=== PATIENT | female | born 1995 | race African-American/Black ===

== ENCOUNTER 2023-06-30 16:23 | Emergency (ER) | payer MEDICAID ==
[~2023-06-30] VITALS: Ht 162.6 cm; Wt 101.8 kg
[2023-06-30 18:30] VITALS: BP 126/81; PULSE 83; RESP 16; TEMP 98.4; O2SAT 99
[2023-06-30] MEDS ORDERED: BENZ100C97 PO (19:03)
== END 2023-06-30 19:08 | disposition home or self-care (01) ==
LOC: ER 16:23
DX: J01.90 Acute sinusitis, unspecified (principal)

== ENCOUNTER 2024-05-04 22:51 | Emergency (ER) | payer MEDICAID ==
[~2024-05-04] VITALS: Ht 165.1 cm; Wt 99.0 kg
[~2024-05-04 22:51] MED LIST: BENZ100C97 PO
[2024-05-04] MEDS: IBUPROFEN 600 MG TAB PO ONE (23:39)
[2024-05-05 00:21] LABS: COVID19 ANTIGEN SOFIA FIA NEGATIVE (NEGATIVE); Rapid Influenza A Negative (Negative); Rapid Influenza B Negative (Negative)
[2024-05-05] MEDS ORDERED: AMOX875T4 PO (01:06)
[2024-05-05] MEDS ORDERED: DEXT30SU PO (01:06)
[2024-05-05] MEDS ORDERED: ACET500T58 PO (01:06)
--- NOTE | 2024-05-05 01:07 | ED.PDOC ---
History of Present Illness HPI Comments 29-YEAR-OLD FEMALE PRESENTS TO ER WITH COMPLAINTS OF FLU-LIKE SYMPTOMS X1 DAY. PATIENT REPORTS THAT SHE WOKE UP WITH NAUSEA, FRONTAL HEADACHE, BODY ACHES, CHILLS, "STOMACHACHE" AND PRODUCTIVE COUGH WITH GREEN PHLEGM AT 9:00 A.M. PRIOR TO ARRIVAL TO ER. SHE REPORTS THAT SHE LAST TOOK TYLENOL AT 4 P.M. PRIOR TO ARRIVAL TO ER. SHE RATES HER CURRENT PAIN A 8/10. PATIENT PRESENTS TO ER FEBRILE ON ARRIVAL AT 101.5 F, AMBULATORY, WITH STEADY GAIT, IN NO DISTRESS AND STATES SHE HAS BEEN AROUND SICK CONTACTS AT HOME. DENIES VOMITING, SHORTNESS OF BREATH, CHEST PAIN, DIZZINESS, SORE THROAT, CHANGES IN URINATION/BM OR ANY FURTHER SYMPTOMS/COMPLAINTS Chief Complaint: Flu like Time Seen by MD: 23:28 Primary Care Provider: UNKNOWN Reviewed Notes: Nurses Notes, Medications, Allergies Information Source: Patient Mode of Arrival: Ambulatory Past Medical History PAST MEDICAL HISTORY: Denies Surgical History: FURNITURE ASSOCIATE History: No Pertinent FURNITURE ASSOCIATE History LMP 04-28-24 Family History Family History: Unknown Social History Smoker: Non-Smoker Alcohol: Denies ETOH Use Drugs: Denies Drug Use Lives In: Home Constitutional: See HPI EENTM: See HPI Respiratory: See HPI Cardiovascular: No Symptoms Reported Gastrointestinal: See HPI Genitourinary: No Symptoms Reported Neurological: No Symptoms Reported Musculoskeletal: No Symptoms Reported Integumentary: No Symptoms Reported Allergic/Immunocompromised: others (DENIES) Hematologic/Lymphatic: No Symptoms Reported Endocrine: No Symptoms Reported Psychiatric: No symptoms Reported Physical Exam General Appearance: No Apparent Distress, Obese HEENT: Normal ENT Inspection, PERRL/EOMI, Pharynx Normal, TMs Normal Neck: Full Range of Motion, Non-Tender, Normal Respiratory: Chest Non-Tender, Lungs Clear, No Accessory Muscle Use, No Respiratory Distress, Normal Breath Sounds Cardiovascular: No Murmur, No Gallop, Regular Rate/Rhythm Breast Exam: Deferred Gastrointestinal: No Organomegaly, Non Tender (NO TTP TO ABDOMEN NOTED), No Pulsatile Mass, Normal Bowel Sounds, Soft Genitalia: Deferred Pelvic: Deferred Rectal: Deferred Extremities: Normal capillary refill, Normal range of motion Neurologic: Alert, medical insurance claims processor II-XII nml as Tested, No Motor Deficits, Normal Affect, Normal Mood, No Sensory Deficits Cerebellar Function: Normal Reflexes: Normal Skin: Dry, Normal Color, Warm Peripheral Pulses: 2+ Radial (R), 2+ Radial (L), 2+ Brachial (R), 2+ Brachial (L) Lymphatic: No Adenopathy Was a procedure done? Was a procedure done?: No Sedation Sedation?: No Fever Differential Dx Differential Diagnosis: Pneumonia, Sepsis, Other (COVID-19, INFLUENZA) X-Ray, Labs, Meds, VS Vital Signs Date Time Temp Pulse Resp B/P (MAP) Pulse Ox O2 Delivery O2 Flow Rate FiO2 05/05/24 01:03 99.1 05/05/24 00:59 Room Air* 0 21 05/04/24 23:39 101.5 05/04/24 23:16 101.5 113 20 128/75 (92) 94 Lab Test 05/04/24 23:18 Range/Units Influenza Type A Antigen Negative Negative Influenza Type B Antigen Negative Negative SARS-CoV-2 Antigen (Rapid) Negative NEGATIVE Current Medications Medications (Trade) Dose Ordered Sig/Tameka Route Start Time Stop Time Status Last Admin Ibuprofen (Motrin Tablet) 600 mg ONCE ONCE PO 05/04/24 23:45 05/04/24 23:46 DC 05/04/24 23:39 ALL SWAB RESULTS REVIEWED-NEGATIVE IBUPROFEN 600 MG P.O. ORDERED PATIENT HAD IMPROVEMENT IN SYMPTOMS AND IN NO DISTRESS PRIOR TO DISCHARGE DIET EDUCATION DISCUSSED ADVISED TO FOLLOW UP WITH PCP IN 1-2 DAYS PATIENT VERBALIZED UNDERSTANDING AND AGREEABLE WITH CURRENT PLAN OF CARE ADVISED TO RETURN TO ER IMMEDIATELY IF SYMPTOMS WORSEN Time of 1ST Reevaluation: 00:48 Reevaluation 1ST: N/A Patient Education/Counseling: Diagnosis, Treatment, Prognosis, Need For Follow Up Family Education/Counseling: No Family Present Departure 1 Departure Time of Disposition: 01:02 Impression: Primary Impression: Upper respiratory infection Qualified Codes: J06.9 - Acute upper respiratory infection, unspecified Additional Impression: Viral gastroenteritis Disposition: 01 HOME / SELF CARE / HOMELESS Condition: Stable e-Prescriptions Dextromethorphan Polistirex (Delsym) 30 Mg/5 Ml Sanjuanita 10 ML PO [id number], #1 BOTTLE 0 Refills Prov: MAURICIO MUNROE 05/05/24 Amoxicillin & Pot Clavulanate (Amoxicillin/Potassium Cla) 875 Mg Tab 1 TAB PO BID for 7 Days, #14 TAB 0 Refills Prov: MAURICIO MUNROE 05/05/24 Acetaminophen (Acetaminophen) 500 Mg Tab 500 MG PO Q4HPRN, #30 TAB 0 Refills Prov: MAURICIO MUNROE 05/05/24 Discharged With: Self Critical Care Note Critical Care Time?: No Stability Stability form required: No Heart Score Heart Score: Heart Score Response (Comments) Value History N/A 0 EKG N/A 0 Age N/A 0 Risk Factors N/A 0 Troponin N/A 0 Total 0 MAURICIO MUNROE May 05, 2024 01:07
[2024-05-05 01:20] VITALS: BP 107/63; PULSE 91; RESP 16; TEMP 99.7; O2SAT 98
== END 2024-05-05 01:23 | disposition home or self-care (01) ==
LOC: ER 22:51
DX: J06.9 Acute upper respiratory infection, unspecified (principal); A08.4 Viral intestinal infection, unspecified; Z98.890 Other specified postprocedural states; Z20.822 Contact with and (suspected) exposure to COVID-19
CPT/HCPCS: 36415; 87426; 87804

== ENCOUNTER 2024-05-09 18:14 | Inpatient (IN) | payer MEDICAID ==
[~2024-05-09] VITALS: Ht 165.1 cm; Wt 98.0 kg
[~2024-05-09 18:14] MED LIST changes: +ACET500T58 PO; +AMOX875T4 PO; +DEXT30SU PO
[2024-05-09] MEDS: HYDROcodone-ACET 10/325MG TAB PO ONE (18:57)
[2024-05-09 19:20] LABS: Basophils # (auto) 0 10 ^3/uL (0-0.2); Basophils % (auto) 0.3 % (0.0-2.0); Eosinophils # (auto) 0 10 ^3/uL (0-0.8); Eosinophils % (auto) 0.4 % (0.0-7.0); Hematocrit 36.9 % (36.0-46.0); Hemoglobin 12.3 g/dL (12.2-16.2); Lymphocytes # (auto) 1.1 10 ^3/uL (0.4-5.4); Lymphocytes % (auto) 11.5 % (10.0-50.0); Mean Corpuscular Hemoglobin 26.4 pg (28.0-32.0); Mean Corpuscular Hgb Conc. 33.5 g/dL (32.0-36.0); Mean Corpuscular Volume 78.9 fL (80.0-100.0); Monocytes % (auto) 10.4 % (0.0-12.0); Neutrophils # (auto) 7.6 10 ^3/uL (1.6-8.6); Neutrophils % (auto) 77.4 % (37.0-80.0); Platelet Count (auto) 266 10^3/uL (140-450); Red Blood Cells 4.67 10^6/uL (4.0-5.20); Red Cell Distribution Width 13.8 % (11.8-14.3); White Blood Cell 9.8 10^3/uL (4.4-10.8)
[2024-05-09 19:36] LABS: Albumin 4.4 g/dL (3.2-4.8); Anion Gap 7 (5-15); BUN/Creatinine Ratio 10.5 (10.0-20.0); Calcium 9.8 mg/dL (8.7-10.4); Carbon Dioxide 28 mmol/L (20-31); Chloride 100 mmol/L (98-107)
[2024-05-09 19:37] LABS: Bilirubin, Total 0.4 mg/dL (0.2-1.0)
[2024-05-09 19:39] LABS: Alanine Aminotransferase 65 U/L (7-40); Alkaline Phosphatase 119 U/L (46-116); Aspartate Aminotransferase 49 U/L (13-40); Blood Urea Nitrogen 9 mg/dL (9-23); Glucose 108 mg/dL (74-106); Potassium 3.4 mmol/L (3.5-5.1); Sodium 135 mmol/L (136-145); Total Protein 8.2 g/dL (5.7-8.2)
[2024-05-09] MEDS: HYDROmorphone HCL 2 MG/ML VL/or syr IM ONE (19:59)
[2024-05-09] MEDS: IOHEXOL 300 MG/ML 100ML BOTTLE IJ ONE (21:13)
--- NOTE | 2024-05-09 21:31 | DVH ---
Exam: CT PELVIS WITH CONTRAST ONLY History: Large abscess to left gluteus near the rectum Comparison Study: None available at time of dictation. Technique: Multidetector CT of the pelvis was performed from iliac crests to pubic symphysis after th e administration of intravenous contrast was administered during this examination. Portal venous imag ing was obtained. Axial, coronal and sagittal multiplanar reformats were performed by the [employer] t on a separate workstation. Radiation Dose : CT Dose: CTDI volume is 33.04 mGy. Dose-length product is 1462.07 mGy*cm Findings: Visualized bowel: No bowel wall thickening or dilatation. Ascites: Absent Lymphadenopathy: No pelvic or mesenteric lymphadenopathy. Vasculature: The visualized abdominal aorta is normal in size and caliber. Abdominal and pelvic vesse ls demonstrate normal enhancement. Pelvic Organs: Unremarkable Musculoskeletal: No acute osseous abnormality. Bladder: Unremarkable Soft tissues: Stranding in the soft tissues of the left gluteal area without findings to suggest drai nable fluid collection or central abscess. The stranding consistent with a phlegmon measures 9.3 x 4. 9 cm IMPRESSION: 1. 9.3 x 4.9 cm phlegmon left gluteal soft tissues. 2. No drainable abscess visualized. All CT scans at this medical facility are performed using dose modulation techniques as appropriate t o a performed exam including the following: Automated exposure control was utilized; adjustment of th e MA and/or KV according to patient size; and use of iterative reconstruction technique.
--- NOTE | 2024-05-09 21:57 | ED.PDOC ---
History of Present Illness HPI Comments Patient is a pleasant but morbidly obese 29-year-old female who arrives the ED today via EMS for evaluation of a left gluteal abscess that began approximately two days ago and has worsened tremendously to since initial presentation. Patient states she can barely sit down without severe pain. Patient denies any fever nausea or vomiting. Patient states that she did attempt to pop it but only was able to express blood. Patient arrives with a large bandage that is bloodied on her left gluteal region. Vital signs were stable on arrival. Chief Complaint: Wound Check Time Seen by MD: 18:24 Primary Care Provider: UNKNOWN Reviewed Notes: Nurses Notes Allergies: Coded Allergies: NO KNOWN ALLERGIES (Unverified , 06/30/23) Home Meds Active Scripts Dextromethorphan Polistirex (Delsym) 30 Mg/5 Ml Sanjuanita, 10 ML PO [id number], #1 BOTTLE 0 Refills Prov:MAURICIO MUNROE 05/05/24 Amoxicillin & Pot Clavulanate (Amoxicillin/Potassium Cla) 875 Mg Tab, 1 TAB PO BID for 7 Days, #14 TAB 0 Refills Prov:MAURICIO MUNROE 05/05/24 Acetaminophen (Acetaminophen) 500 Mg Tab, 500 MG PO Q4HPRN, #30 TAB 0 Refills Prov:MAURICIO MUNROE 05/05/24 Benzonatate (Benzonatate) 100 Mg Cap, 1 CAP PO TID, #30 CAP Prov:ASHLIE CHESTER PAC 06/30/23 Information Source: Patient Mode of Arrival: EMS Severity: Moderate Timing: Days Duration: Since onset Prehospital treatment: None Past Medical History PAST MEDICAL HISTORY: Denies Surgical History: DIRECTOR OF QUALITY CONTROL History: No Pertinent DIRECTOR OF QUALITY CONTROL History Family History Family History: Unknown Social History Smoker: Non-Smoker Alcohol: Denies ETOH Use Drugs: Denies Drug Use Lives In: Home Constitutional: denies: chills, diaphoresis, fatigue, fever, malaise, sweats, weakness, others EENTM: denies: blurred vision, double vision, ear bleeding, ear discharge, ear drainage, ear pain, ear ringing, eye pain, eye redness, hearing loss, mouth pain, mouth swelling, nasal discharge, nose bleeding, nose congestion, nose pain, photophobia, tearing, throat pain, throat swelling, voice changes, others Respiratory: denies: cough, hemoptysis, orthopnea, SOB at rest, shortness of breath, SOB with excertion, stridor, wheezing, others Cardiovascular: denies: chest pain, dizzy spells, diaphoresis, Dyspnea on exertion, edema, irregular heart beat, left arm pain, lightheadedness, palpitations, PND, syncope, others Gastrointestinal: denies: abdomen distended, abdominal pain, blood streaked bowels, constipated, diarrhea, dysphagia, difficulty swallowing, hematemesis, melena, nausea, poor appetite, poor fluid intake, rectal bleeding, rectal pain, vomiting, others Genitourinary: denies: abnormal vagina bleeding, burning, dyspareunia, dysuria, flank pain, frequency, hematuria, incontinence, pain, , vagina discharge, urgency, others Neurological: denies: dizziness, fainting, headache, left sided numbness, left sided weakness, numbness, paresthesia, pre-existing deficit, right sided numbness, right sided weakness, seizure, speech problems, tingling, tremors, weakness, others Musculoskeletal: denies: back pain, gout, joint pain, joint swelling, muscle pain, muscle stiffness, neck pain, others Integumetry: reports: others (Abscess to the left gluteal region); denies: bruises, change in color, change in hair/nails, dryness, laceration, lesions, lumps, rash, wounds Allergic/Immunocompromised: denies: Difficulty Healing, Frequent Infections, Hives, Itching, others Hematologic/Lymphatic: denies: anemia, blood clots, easy bleeding, easy bruisi ng, swollen glands, others Endocrine: denies: excessive hunger, excessive sweating, excessive thirst, exce ssive urination, flushing, intolerance to cold, intolerance to heat, unexplained weight gain, unexplained weight loss, others Psychiatric: denies: anxiety, bipolar disorder, depression, hopeless, panic disorder, schizophrenia, sleepless, suicidal, others Physical Exam General Appearance: Moderate Distress (Patient was in moderate distress and tearful at time of evaluation due to pain related to her wound.), Obese HEENT: Normal ENT Inspection, Pharynx Normal, TMs Normal Neck: Full Range of Motion, Non-Tender, Normal, Normal Inspection Respiratory: Chest Non-Tender, Lungs Clear, No Accessory Muscle Use, No Respiratory Distress, Normal Breath Sounds Cardiovascular: No Edema, No JVD, No Murmur, No Gallop, Normal Peripheral Pulses, Regular Rate/Rhythm Breast Exam: Deferred Gastrointestinal: No Organomegaly, Non Tender, No Pulsatile Mass, Normal Bowel Sounds, Soft Genitalia: Deferred Pelvic: Deferred Rectal: Deferred Extremities: No calf tenderness, Normal capillary refill, Normal inspection, No rmal range of motion, Non-tender, No pedal edema Neurologic: Alert, No Motor Deficits, Normal Affect, Normal Mood, No Sensory Deficits Cerebellar Function: Normal Reflexes: Normal Skin: Dry, Normal Color, Warm, Wounds (Patient was strains a home sized area of induration on the left gluteal region that extends into the gluteal fold and towards the rectum. A bloodied bandage was removed and reveals some bleeding from a pseudo centralized location. Exquisite tenderness to palpation throughout.) Lymphatic: No Adenopathy Was a procedure done? Was a procedure done?: No Differential Dx Considerations may include: Abscess, phlegmon, cellulitis X-Ray, Labs, Meds, VS Vital Signs Date Time Temp Pulse Resp B/P (MAP) Pulse Ox O2 Delivery O2 Flow Rate FiO2 05/09/24 19:59 104 20 133/74 05/09/24 18:31 98.1 94 14 106/57 (73) 99 Lab Test 05/09/24 19:05 Range/Units White Blood Count 9.8 4.4-10.8 10^3/uL Red Blood Count 4.67 4.0-5.20 10^6/uL Hemoglobin 12.3 12.2-16.2 g/dL Hematocrit 36.9 36.0-46.0 % Mean Corpuscular Volume 78.9 L 80.0-100.0 fL Mean Corpuscular Hemoglobin 26.4 L 28.0-32.0 pg Mean Corpuscular Hemoglobin Concent 33.5 32.0-36.0 g/dL Red Cell Distribution Width 13.8 11.8-14.3 % Platelet Count 266 140-450 10^3/uL Mean Platelet Volume 8.9 6.9-10.8 fL Neutrophils (%) (Auto) 77.4 37.0-80.0 % Lymphocytes (%) (Auto) 11.5 10.0-50.0 % Monocytes (%) (Auto) 10.4 0.0-12.0 % Eosinophils (%) (Auto) 0.4 0.0-7.0 % Basophils (%) (Auto) 0.3 0.0-2.0 % Neutrophils # (Auto) 7.6 1.6-8.6 10 ^3/uL Lymphocytes # (Auto) 1.1 0.4-5.4 10 ^3/uL Monocytes # (Auto) 1.0 0-1.3 10 ^3/uL Eosinophils # (Auto) 0 0-0.8 10 ^3/uL Basophils # (Auto) 0 0-0.2 10 ^3/uL Nucleated Red Blood Cells 0.0 % Sodium Level 135 L 136-145 mmol/L Potassium Level 3.4 L 3.5-5.1 mmol/L Chloride Level 100 98-107 mmol/L Carbon Dioxide Level 28 20-31 mmol/L Anion Gap 7 5-15 Blood Urea Nitrogen 9 9-23 mg/dL Creatinine 0.86 0.550-1.02 mg/dL Glomerular Filtration Rate Calc 94 >90 mL/min BUN/Creatinine Ratio 10.5 10.0-20.0 Serum Glucose 108 H 74-106 mg/dL Lactic Acid Level 1.3 0.4-2.0 mmol/L Calcium Level 9.8 8.7-10.4 mg/dL Total Bilirubin 0.4 0.2-1.0 mg/dL Aspartate Amino Transferase (AST) 49 H 13-40 U/L Alanine Aminotransferase (ALT) 65 H 7-40 U/L Alkaline Phosphatase 119 H 46-116 U/L Total Protein 8.2 5.7-8.2 g/dL Albumin 4.4 3.2-4.8 g/dL Current Medications Medications (Trade) Dose Ordered Sig/Tameka Route Start Time Stop Time Status Last Admin Acetaminophen/ Hydrocodone Bitart ([place] 10/325MG Tab) 1 tab ONCE ONCE PO 05/09/24 18:45 05/09/24 19:41 DC 05/09/24 18:57 Hydromorphone HCl (Dilaudid Injection) 1 mg ONCE ONCE IM 05/09/24 19:45 05/09/24 19:46 DC 05/09/24 19:59 X-Ray, Labs, Meds, VS Comment All studies performed the ED were evaluated by me personally. Serum laboratories were unremarkable for any systemic concerns, but CT with contrast on the gluteal region reveals a large phlegmon noted to the left gluteal soft tissue. Due to the patient's difficult pain management as well as the possible development of a fistula due to the size of this wound, patient will be admitted for IV antibiotics and daily wound assessments. Patient may require surgical intervention. Time of 1ST Reevaluation: 21:59 Reevaluation 1ST: Improved Consultation: PCP Patient Education/Counseling: Diagnosis, Treatment Family Education/Counseling: Diagnosis, Treatment Departure 1 Departure Time of Disposition: 21:56 Impression: Primary Impression: Phlegmon Additional Impression: Intractable pain Disposition: 09 ADMITTED INPATIENT Condition: Fair Discharged With: Self Critical Care Note Critical Care Time?: No Stability Stability form required: No Heart Score Heart Score: Heart Score Response (Comments) Value History N/A 0 EKG N/A 0 Age N/A 0 Risk Factors N/A 0 Troponin N/A 0 Total 0 GREGORY COMER PAC May 09, 2024 21:57
[2024-05-09] MEDS ORDERED: PENICILLIN G POTASSIUM 3,000,000 UNITS in D5W 5% 50 ML IV SCH (22:00)
[2024-05-09] MEDS ORDERED: HYDROcodone-ACET 5/325MG TAB PO PRN (23:45)
[2024-05-09] MEDS: POTASSIUM CHL 20 Meq TABLET PO ONE (23:45)
[2024-05-09] MEDS ORDERED: NITROGLYCERIN 0.4 MG SL TAB SL PRN (23:45)
[2024-05-09] MEDS ORDERED: DOCUSATE SOD 100 MG CAP PO PRN (23:45)
[2024-05-09] MEDS ORDERED: MORPHINE SULFATE INJ 2 MG/ml SYRG IV PRN (23:45)
--- NOTE | 2024-05-09 23:48 | DVHHP2 ---
History of Present Illness Reason for Visit: Left gluteal abscess History of Present Illness The patient is a 29-year-old female who denies past medical history presented to [facility] ED for evaluation of left gluteal abscess. Patient reports abscess has worsened from initial presentation that prompted this visit. Patient was seen and evaluated in the ED, laboratory data shows WBC 9.8, platelets 266, sodium 135, potassium 3.4, BUN nine, creatinine 0.85, GFR 94, glucose 108, AST 49, ALT 65. Pelvis CT revealing 9.3 x 4.9 cm phlegmon left gluteal soft tissues, no drainable abscess visualized. Patient was started on IV antibiotic regimen Zosyn, please see medication orders section in the computer. On my assessment, patient denied chest pain, no headache, no dizziness, no abdominal pain, no nausea, no vomiting, no fever, no chills. Patient was admitted for further evaluation and medical management. Past Medical History Denies past medical history Past Surgical History Family History Reviewed, noncontributory to the management of this case. Past Social History The patient lives at home, denies smoking, alcohol or illicit drugs abuse. Review of Systems Constitutional: No: Fever, Chills, Sweats, Weakness, Malaise, Other Eyes: No: Pain, Vision change, Conjunctivae inflammation, Eyelid inflammation, Other, Redness ENT: No: Ear pain, Ear discharge, Nose pain, Nose discharge, Nose congestion, Mouth pain, Mouth swelling, Throat pain, Throat swelling, Other Respiratory: No: Cough, Dry, Shortness of breath, SOB with excertion, Wheezing, Hemoptysis, Pleuritic Pain, Sputum, Wheezing, Other Cardiovascular: No: Chest Pain, Palpitations, Orthopnea, Paroxysmal Noc. Dyspnea, Edema, Lt Headedness, Other Gastrointestinal: No: Nausea, Vomiting, Abdominal Pain, Diarrhea, Constipation, Melena, Hematochezia, Other Genitourinary: No Dysuria, No Frequency, No Incontinence, No Hematuria, No Retention, No Other Musculoskeletal: No: other, neck pain, shoulder pain, arm pain, back pain, hand pain, leg pain, foot pain Skin: Other (Abscess to the left gluteal region); No: Rash, Lesions, Jaundice, Bruising Neurological: No: Weakness, Numbness, Incoordination, Change in speech, Confusion, Seizures, Other Allergies: Coded Allergies: NO KNOWN ALLERGIES (Unverified , 06/30/23) Medications Current Medications Medications Dose Ordered Sig/Tameka Route Start Time Stop Time Status Last Admin Dose Admin Penicillin G Potassium [id number] units/Dextrose 50 ml @ 100 mls/hr Q4HR IV 05/09/24 22:00 Exam Vital Signs Vital Signs Date Time Temp Pulse Resp B/P (MAP) Pulse Ox O2 Delivery O2 Flow Rate FiO2 05/09/24 19:59 104 20 133/74 05/09/24 18:31 98.1 99 General Appearance: Alert, Oriented X3, Cooperative, No acute distress HEENT: Atraumatic, PERRLA, EOMI, Mucous membr. moist/pink Respiratory: Clear to auscultation, Normal air movement Cardiovascular: Regular rate, Normal S1, Normal S2, No murmurs Abdominal: Normal bowel sounds, Soft, No tenderness, No hepatospenomegaly, No masses Extremities: No clubbing, No cyanosis, No edema, Normal pulses, No tenderness/swelling Skin: No rashes, No significant lesion Neuro: Normal gait, Normal speech, Strength at 5/5 X4 ext, Normal tone, Sensation intact, Cranial nerves 3-12 NL, Reflexes 2+ Psych/Mental Status: Mental status NL, Mood NL Labs/Xrays Labs Test 05/09/24 19:05 Range/Units White Blood Count 9.8 4.4-10.8 10^3/uL Red Blood Count 4.67 4.0-5.20 10^6/uL Hemoglobin 12.3 12.2-16.2 g/dL Hematocrit 36.9 36.0-46.0 % Mean Corpuscular Volume 78.9 L 80.0-100.0 fL Mean Corpuscular Hemoglobin 26.4 L 28.0-32.0 pg Mean Corpuscular Hemoglobin Concent 33.5 32.0-36.0 g/dL Red Cell Distribution Width 13.8 11.8-14.3 % Platelet Count 266 140-450 10^3/uL Mean Platelet Volume 8.9 6.9-10.8 fL Neutrophils (%) (Auto) 77.4 37.0-80.0 % Lymphocytes (%) (Auto) 11.5 10.0-50.0 % Monocytes (%) (Auto) 10.4 0.0-12.0 % Eosinophils (%) (Auto) 0.4 0.0-7.0 % Basophils (%) (Auto) 0.3 0.0-2.0 % Neutrophils # (Auto) 7.6 1.6-8.6 10 ^3/uL Lymphocytes # (Auto) 1.1 0.4-5.4 10 ^3/uL Monocytes # (Auto) 1.0 0-1.3 10 ^3/uL Eosinophils # (Auto) 0 0-0.8 10 ^3/uL Basophils # (Auto) 0 0-0.2 10 ^3/uL Nucleated Red Blood Cells 0.0 % Sodium Level 135 L 136-145 mmol/L Potassium Level 3.4 L 3.5-5.1 mmol/L Chloride Level 100 98-107 mmol/L Carbon Dioxide Level 28 20-31 mmol/L Anion Gap 7 5-15 Blood Urea Nitrogen 9 9-23 mg/dL Creatinine 0.86 0.550-1.02 mg/dL Glomerular Filtration Rate Calc 94 >90 mL/min BUN/Creatinine Ratio 10.5 10.0-20.0 Serum Glucose 108 H 74-106 mg/dL Lactic Acid Level 1.3 0.4-2.0 mmol/L Calcium Level 9.8 8.7-10.4 mg/dL Total Bilirubin 0.4 0.2-1.0 mg/dL Aspartate Amino Transferase (AST) 49 H 13-40 U/L Alanine Aminotransferase (ALT) 65 H 7-40 U/L Alkaline Phosphatase 119 H 46-116 U/L Total Protein 8.2 5.7-8.2 g/dL Albumin 4.4 3.2-4.8 g/dL [id number]: [id number] : 1995 LOC: ER ROOM / BED: / AGE / SEX: 29 / F ADM STATUS: REG ER SERVICE 2253 ORDERING PHYSICIAN: GREGORY COMER PAC PROCEDURE(s): PELCT - PELVIS WITH CONTRAST ONLY REASON: Large abscess to left gluteus near the rectum ORDER NUMBER(s): [id number], ACCESSION NUMBER(s): [id number] Exam: CT PELVIS WITH CONTRAST ONLY History: Large abscess to left gluteus near the rectum Comparison Study: None available at time of dictation. Technique: Multidetector CT of the pelvis was performed from iliac crests to pubic symphysis after the administration of intravenous contrast was administered during this examination. Portal venous imaging was obtained. Axial, coronal and sagittal multiplanar reformats were performed by the technologist on a separate workstation. Radiation Dose : CT Dose: CTDI volume is 33.04 mGy. Dose-length product is 1462.07 mGy*cm Findings: Visualized bowel: No bowel wall thickening or dilatation. Ascites: Absent Lymphadenopathy: No pelvic or mesenteric lymphadenopathy. Vasculature: The visualized abdominal aorta is normal in size and caliber. Abdominal and pelvic vessels demonstrate normal enhancement. Pelvic Organs: Unremarkable Musculoskeletal: No acute osseous abnormality. Bladder: Unremarkable Soft tissues: Stranding in the soft tissues of the left gluteal area without findings to suggest drainable fluid collection or central abscess. The stranding consistent with a phlegmon measures 9.3 x 4.9 cm IMPRESSION: 1. 9.3 x 4.9 cm phlegmon left gluteal soft tissues. 2. No drainable abscess visualized. Assessment/Plan Assessment/Plan Phlegmon Intractable pain Left gluteal abscess Plan 1. Admit to med surge unit 2. Breathing treatment 3. Pain control management 4. IV antibiotic management 5. Management of fluids and electrolytes 6. Consultation for hospitalist/wound care 7. Diagnostic test pelvic CT 8. DVT prophylaxis-on SCDs 9. Repeat labs CBC, CMP in a.m. 10. Home medication reviewed and reconciled 11. Continue with current medical management 12. Treatment plan discussed with patient and RN. Patient verbalized understanding. Plan discussed with: Patient, Other (RN) My Orders Orders - KALIN SANCHES DNP Procedure Category Date Status Time Potassium Er Tablet PHA 05/09/24 Transmitted (Klor-Con Tablet) 23:45 Admit ADMIT 05/09/24 Transmitted 23:35 Allergies OSBALDO 05/09/24 Transmitted 23:35 Code Status CODE 05/09/24 Transmitted 23:35 2 Gm Sodium Diet DIET 05/10/24 Transmitted Breakfast 0.9% Ns 1000 Ml PHA 05/09/24 Transmitted 23:45 Oxygen Per Hour RT 05/09/24 Transmitted 23:35 Hydrocodone-Acet PHA 05/09/24 Transmitted 5/325mg Tab ([place] 23:45 Ondansetron Hcl PHA 05/09/24 Transmitted (Zofran) 23:45 Docusate Sodium PHA 05/09/24 Transmitted Capsule (Colace 23:45 Zinc Sulfate PHA 05/10/24 Transmitted 10:00 Ascorbic Acid Tablet PHA 05/10/24 Transmitted (Vitamin C Tablet) 10:00 Complete Blood Count LAB 05/10/24 Verified 04:00 Comprehensive LAB 05/10/24 Verified Metabolic Panel 04:00 Condition: Serious OSBALDO 05/09/24 Transmitted 23:35 Acetaminophen Tablet PHA 05/09/24 Transmitted (Tylenol Tablet) 23:45 Bedrest With Bathroom OSBALDO 05/09/24 Transmitted Privileg 23:35 Morphine Sulfate PHA 05/09/24 Transmitted Injection 23:45 Sequential OSBALDO 05/09/24 Transmitted Compression Device Nitroglycerin PHA 05/09/24 Transmitted Sublingual (Ntrostat 23:45 Morphine Sulfate PHA 05/09/24 Transmitted Injection 23:45 Notify Md Of Changes [facility] 05/09/24 Transmitted From Base 23:35 Emergency Dysrhythmia [facility] 05/09/24 Transmitted Protocol 23:35 Oxygen By Nasal RT 05/09/24 Transmitted Cannula 23:35 Problem List: (1) Phlegmon (2) Abscess, gluteal, left (3) Intractable pain Date of Service: May 09, 2024 Billing Provider: KALIN SANCHES DNP Common Visit Codes: [id number] INP/OBS CARE (HIGH) KALIN SANCHES DNP May 09, 2024 23:48
[2024-05-10] MEDS: SODIUM CHLORIDE 0.9% 1,000 ML IV ONE (01:43)
[2024-05-10] MEDS: PIPERACILLIN-TAZOB 3.375GM 100 ML IV SCH (02:30)
[2024-05-10] MEDS: ACETAMINOPHEN 325 MG TAB PO PRN (02:32)
[2024-05-10] MEDS: SODIUM CHLORIDE 0.9% 1,000 ML IV SCH (03:02)
[2024-05-10] MEDS: IBUPROFEN 600 MG TAB PO PRN (06:09)
[2024-05-10 07:16] LABS: Basophils # (auto) 0 10 ^3/uL (0-0.2); Basophils % (auto) 0.2 % (0.0-2.0); Eosinophils # (auto) 0 10 ^3/uL (0-0.8); Eosinophils % (auto) 0.2 % (0.0-7.0); Platelet Count (auto) 222 10^3/uL (140-450)
[2024-05-10 07:20] LABS: Hematocrit 33.5 % (36.0-46.0); Lymphocytes % (auto) 9.5 % (10.0-50.0); Mean Corpuscular Hemoglobin 25.8 pg (28.0-32.0); Mean Corpuscular Hgb Conc. 32.8 g/dL (32.0-36.0); Mean Corpuscular Volume 78.6 fL (80.0-100.0); Monocytes # (auto) 1.4 10 ^3/uL (0-1.3); Monocytes % (auto) 14.1 % (0.0-12.0); Neutrophils # (auto) 7.7 10 ^3/uL (1.6-8.6); Red Blood Cells 4.26 10^6/uL (4.0-5.20); Red Cell Distribution Width 13.7 % (11.8-14.3); White Blood Cell 10.1 10^3/uL (4.4-10.8)
[2024-05-10 07:34] LABS: Alkaline Phosphatase 100 U/L (46-116); Anion Gap 8 (5-15); Aspartate Aminotransferase 36 U/L (13-40); BUN/Creatinine Ratio 9.5 (10.0-20.0); Carbon Dioxide 25 mmol/L (20-31); Chloride 101 mmol/L (98-107)
[2024-05-10 07:35] LABS: Bilirubin, Total 0.6 mg/dL (0.2-1.0)
[2024-05-10 07:36] LABS: Alanine Aminotransferase 55 U/L (7-40); Blood Urea Nitrogen 8 mg/dL (9-23); Calcium 8.3 mg/dL (8.7-10.4); Glucose 116 mg/dL (74-106); Potassium 3.5 mmol/L (3.5-5.1); Sodium 134 mmol/L (136-145)
[2024-05-10 07:39] VITALS: PULSE 87; RESP 14; O2SAT 96
[2024-05-10] MEDS: ASCORBIC ACID 500 MG TAB PO SCH (11:33)
[2024-05-10] MEDS: ZINC SULFATE 220mg CAP or TAB PO SCH (11:33)
[2024-05-10] MEDS: MORPHINE SULFATE INJ 2 MG/ml SYRG IV PRN (13:20)
[2024-05-10 17:33] VITALS: BP 121/71; PULSE 99; RESP 16; TEMP 98.7; O2SAT 98
[2024-05-10 18:26] VITALS: BP 103/53; PULSE 90; RESP 19; TEMP 99.7; O2SAT 95
[2024-05-10 19:00] VITALS: PULSE 88; RESP 17; O2SAT 99
[2024-05-10 20:00] VITALS: PULSE 88; RESP 17; O2SAT 99
--- NOTE | 2024-05-10 20:18 | DVHPN2 ---
Subjective The patient seen and examined at bedside. The patient still have lots of pain in buttock area. Reviewed: Care Plan, H&P, Labs, Medications, Previous Orders, Radiology Changes from previous H/P or p: No Changes Eyes: No Pain, No Vision change, No Conjunctivae inflammation, No Eyelid inflammation, No Other, No Redness ENT: No Ear pain, No Ear discharge, No Nose pain, No Nose discharge, No Nose congestion, No Mouth pain, No Mouth swelling, No Throat pain, No Throat swelling, No Other Cardiovascular: No Chest Pain, No Palpitations, No Orthopnea, No Paroxysmal Noc. Dyspnea, No Edema, No Lt Headedness, No Other Respiratory: No Cough, No Dry, No Shortness of breath, No SOB with excertion, No Wheezing, No Hemoptysis, No Pleuritic Pain, No Sputum, No Other Gastrointestinal: No Nausea, No Vomiting, No Abdominal Pain, No Diarrhea, No Constipation, No Melena, No Hematochezia, No Other Genitourinary: No Dysuria, No Frequency, No Incontinence, No Hematuria, No Retention, No Other Musculoskeletal: No other, No neck pain, No shoulder pain, No arm pain, No back pain, No hand pain, No leg pain, No foot pain Skin: No Rash, No Lesions, No Jaundice, No Bruising; Other (Abscess to the left gluteal region) Objective Vitals Vital Signs Date Time Temp Pulse Resp B/P (MAP) Pulse Ox O2 Delivery O2 Flow Rate FiO2 05/10/24 18:55 Room Air* 0 21 05/10/24 18:26 99.7 90 19 103/53 (70) 95 99.7 Intake/Output Intake and Output 05/10/24 07:00 Intake Total 1000 ml Balance 1000 ml Intake IV Total 1000 ml General Appearance: Alert, Oriented X3, Cooperative, No acute distress HEENT: Atraumatic, PERRLA, EOMI, Mucous membr. moist/pink Neck: Supple Cardiovascular: Regular rate, Normal S1, Normal S2, No murmurs, Gallops, Rubs Abdomen: Normal bowel sounds, Soft, No tenderness Neuro: Cranial nerves 3-12 NL Psych/Mental Status: Mental status NL Medications Current Medications Medications Dose Ordered Sig/Tameka Route Start Time Stop Time Status Last Admin Dose Admin Sodium Chloride 1,000 ml @ 60 mls/hr [id number] IV 05/09/24 23:45 05/10/24 16:55 60 MLS/HR Ondansetron HCl 4 mg Q4HP PRN IV 05/09/24 23:45 Docusate Sodium 100 mg BIDPRN PRN PO 05/09/24 23:45 Zinc Sulfate 220 mg DAILY PO 05/10/24 10:00 05/10/24 11:33 220 MG Ascorbic Acid 500 mg BID PO 05/10/24 10:00 05/10/24 11:33 500 MG Acetaminophen 650 mg Q6HP PRN PO 05/09/24 23:45 05/10/24 10:36 650 MG Morphine Sulfate 2 mg Q4HPRN PRN IV 05/09/24 23:45 05/10/24 13:20 2 MG Nitroglycerin 0.4 mg Q5MINP PRN SL 05/09/24 23:45 Morphine Sulfate 2 mg Q30M PRN IV 05/09/24 23:45 Piperacillin Sod/ Tazobactam Sod 100 ml @ 25 mls/hr Q8H IV 05/10/24 02:30 05/10/24 11:33 25 MLS/HR Ibuprofen 600 mg Q6HP PRN PO 05/10/24 06:00 05/10/24 16:40 600 MG Laboratory Results Laboratory Tests 05/10/24 06:35 Chemistry Test 05/10/24 06:35 Albumin 4.0 g/dL (3.2-4.8) Calcium Level 8.3 mg/dL (8.7-10.4) L Total Protein 7.0 g/dL (5.7-8.2) LFT Test 05/10/24 06:35 Alanine Aminotransferase (ALT) 55 U/L (7-40) H Alkaline Phosphatase 100 U/L (46-116) Aspartate Amino Transferase (AST) 36 U/L (13-40) Total Bilirubin 0.6 mg/dL (0.2-1.0) Labs and/or images reviewed: Labs reviewed by me Assessment/Plan Assessment/Plan Phlegmon Intractable pain Left gluteal abscess Plan Continue current management with IV antibiotic Zosyn Continue pain medications. Will follow up with the phlegmon. Anticipate IR consult if possible abscess that we can drain. Plan discussed with: Patient My Orders Orders - JOANNE SUNG MD Procedure Category Date Status Time Electrocardigram EKG 05/10/24 Logged 15:21 Date of Service: May 10, 2024 Billing Provider: JOANNE SUNG MD Common Visit Codes: [id number] INP/OBS CARE(HIGH) JOANNE SUNG MD May 10, 2024 20:18
[2024-05-10 21:00] VITALS: BP 102/60; PULSE 86; RESP 18; TEMP 99.7; O2SAT 97
[2024-05-11] VITALS (7 sets, daily range): BP systolic 104–135; BP diastolic 53–79; PULSE 63–87; RESP 18–20; TEMP 97.5–98.4; O2SAT 93–100
[2024-05-11 07:07] LABS: White Blood Cell 8.3 10^3/uL (4.4-10.8)
[2024-05-11 07:12] LABS: Hematocrit 32.6 % (36.0-46.0); Hemoglobin 10.9 g/dL (12.2-16.2); Mean Corpuscular Hemoglobin 26.4 pg (28.0-32.0); Mean Corpuscular Hgb Conc. 33.5 g/dL (32.0-36.0); Mean Corpuscular Volume 78.8 fL (80.0-100.0); Platelet Count (auto) 243 10^3/uL (140-450); Red Blood Cells 4.14 10^6/uL (4.0-5.20); Red Cell Distribution Width 14.1 % (11.8-14.3)
[2024-05-11 07:22] LABS: Basophils % (manual) 0 (0.0-2.0); Blast Cells 0; Eosinophils % (manual) 0 (0-7); Metamyelocytes % 0; Myelocytes % 0; Promyelocytes % 0; Reactive Lymphocytes 0
[2024-05-11 07:28] LABS: Anion Gap 7 (5-15); Carbon Dioxide 28 mmol/L (20-31); Chloride 102 mmol/L (98-107); Potassium 3.5 mmol/L (3.5-5.1); Sodium 137 mmol/L (136-145)
[2024-05-11 07:30] LABS: Calcium 8.7 mg/dL (8.7-10.4)
[2024-05-11 07:34] LABS: BUN/Creatinine Ratio 8.9 (10.0-20.0); Glucose 103 mg/dL (74-106)
[2024-05-11 07:42] LABS: Blood Urea Nitrogen 7 mg/dL (9-23)
[2024-05-11 08:14] LABS: Anisocytosis Slight; Band Neutrophils % (manual) 4; Lymphocytes % (manual) 13 (10.0-50.0); Monocytes % (manual) 15 (0-12)
[2024-05-11 08:15] LABS: Platelet Estimate Adequate
--- NOTE | 2024-05-11 09:43 | ECG ---
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
--- NOTE | 2024-05-11 11:40 | DVHPN2 ---
Subjective The patient seen and examined at bedside. The patient still have lots of pain in buttock area. Reviewed: Care Plan, H&P, Labs, Medications, Previous Orders, Radiology Changes from previous H/P or p: No Changes Eyes: No Pain, No Vision change, No Conjunctivae inflammation, No Eyelid inflammation, No Other, No Redness ENT: No Ear pain, No Ear discharge, No Nose pain, No Nose discharge, No Nose congestion, No Mouth pain, No Mouth swelling, No Throat pain, No Throat swelling, No Other Cardiovascular: No Chest Pain, No Palpitations, No Orthopnea, No Paroxysmal Noc. Dyspnea, No Edema, No Lt Headedness, No Other Respiratory: No Cough, No Dry, No Shortness of breath, No SOB with excertion, No Wheezing, No Hemoptysis, No Pleuritic Pain, No Sputum, No Other Gastrointestinal: No Nausea, No Vomiting, No Abdominal Pain, No Diarrhea, No Constipation, No Melena, No Hematochezia, No Other Genitourinary: No Dysuria, No Frequency, No Incontinence, No Hematuria, No Retention, No Other Musculoskeletal: No other, No neck pain, No shoulder pain, No arm pain, No back pain, No hand pain, No leg pain, No foot pain Skin: No Rash, No Lesions, No Jaundice, No Bruising; Other (Abscess to the left gluteal region) Objective Vitals Vital Signs Date Time Temp Pulse Resp B/P (MAP) Pulse Ox O2 Delivery O2 Flow Rate FiO2 05/11/24 08:58 98.0 63 19 109/68 (82) 100 98.0 05/10/24 20:00 Room Air* 0 21 General Appearance: Alert, Oriented X3, Cooperative, No acute distress HEENT: Atraumatic, PERRLA, EOMI, Mucous membr. moist/pink Neck: Supple Cardiovascular: Regular rate, Normal S1, Normal S2, No murmurs, Gallops, Rubs Abdomen: Normal bowel sounds, Soft, No tenderness Neuro: Cranial nerves 3-12 NL Psych/Mental Status: Mental status NL Medications Current Medications Medications Dose Ordered Sig/Tameka Route Start Time Stop Time Status Last Admin Dose Admin Sodium Chloride 1,000 ml @ 60 mls/hr [id number] IV 05/09/24 23:45 05/10/24 16:55 60 MLS/HR Ondansetron HCl 4 mg Q4HP PRN IV 05/09/24 23:45 Docusate Sodium 100 mg BIDPRN PRN PO 05/09/24 23:45 Zinc Sulfate 220 mg DAILY PO 05/10/24 10:00 05/11/24 09:30 220 MG Ascorbic Acid 500 mg BID PO 05/10/24 10:00 05/11/24 09:29 500 MG Acetaminophen 650 mg Q6HP PRN PO 05/09/24 23:45 05/11/24 09:30 650 MG Morphine Sulfate 2 mg Q4HPRN PRN IV 05/09/24 23:45 05/10/24 13:20 2 MG Nitroglycerin 0.4 mg Q5MINP PRN SL 05/09/24 23:45 Morphine Sulfate 2 mg Q30M PRN IV 05/09/24 23:45 Piperacillin Sod/ Tazobactam Sod 100 ml @ 25 mls/hr Q8H IV 05/10/24 02:30 05/11/24 09:30 25 MLS/HR Ibuprofen 600 mg Q6HP PRN PO 05/10/24 06:00 05/11/24 04:59 600 MG Laboratory Results Laboratory Tests 05/11/24 06:29 Chemistry Test 05/11/24 06:29 Calcium Level 8.7 mg/dL (8.7-10.4) Labs and/or images reviewed: Labs reviewed by me Assessment/Plan Assessment/Plan Phlegmon Intractable pain Left gluteal abscess Plan Continue current management with IV antibiotic Zosyn Continue pain medications. Will follow up with the phlegmon. Anticipate IR consult if possible abscess that we can drain. Plan discussed with: Patient, Spouse My Orders Orders - JOANNE SUNG MD Procedure Category Date Status Time Complete Blood Count LAB 05/12/24 Verified 05:00 Complete Blood Count LAB 05/13/24 Verified 05:00 Complete Blood Count LAB 05/14/24 Verified 05:00 Complete Blood Count LAB 05/15/24 Verified 05:00 Basic Metabolic Panel LAB 05/12/24 Verified 05:00 Basic Metabolic Panel LAB 05/13/24 Verified 05:00 Basic Metabolic Panel LAB 05/14/24 Verified 05:00 Basic Metabolic Panel LAB 05/15/24 Verified 05:00 Date of Service: May 11, 2024 Billing Provider: JOANNE SUNG MD Common Visit Codes: [id number] INP/OBS CARE(HIGH) JOANNE SUNG MD May 11, 2024 11:40
--- NOTE | 2024-05-11 18:19 | DVHINCON2 ---
Date Seen: May 11, 2024 Referring Physician MD Ashlyn Reason for Consultation Chest pain History of Present Illness This is a 29-year-old female who presented to the emergency room via EMS with a chief complaint of wound check for a left gluteal abscess. During admission, the patient experienced a couple of chest pain episodes prompting cardiology evaluation. One episode occurred yesterday and one today with each of them lasting approximately 5 minutes. Describes her chest pain as substernal, nonradiating, sharp in nature, non provoked, and not associated with any other symptoms. The patient endorses that been medicated with morphine makes the pain worse. She underwent multiple 12 lead electrocardiogram revealing a sinus rhythm. Serial troponin levels are negative. Denies any past medical history. Past Medical History Past medical history reviewed. No other significant than mentioned above. Past Surgical History Family History: Patient reports no known family medical history. Family History Family history reviewed. Not significant for CV disease. Social History Denies the use of illicit drugs or tobacco use. Admits to occasional alcohol use. Allergies: Coded Allergies: NO KNOWN ALLERGIES (Unverified , 06/30/23) Home Meds Active Scripts Dextromethorphan Polistirex (Delsym) 30 Mg/5 Ml Sanjuanita, 10 ML PO [id number], #1 BOTTLE 0 Refills Prov:MAURICIO MUNROE 05/05/24 Amoxicillin & Pot Clavulanate (Amoxicillin/Potassium Cla) 875 Mg Tab, 1 TAB PO BID for 7 Days, #14 TAB 0 Refills Prov:MAURICIO MUNROE 05/05/24 Acetaminophen (Acetaminophen) 500 Mg Tab, 500 MG PO Q4HPRN, #30 TAB 0 Refills Prov:MAURICIO MUNROE 05/05/24 Benzonatate (Benzonatate) 100 Mg Cap, 1 CAP PO TID, #30 CAP Prov:ASHLIE CHESTER 06/30/23 Home Meds Home medications reviewed. Review of Systems Constitutional: No symptom reported Ears, Nose, & Throat: No symptom reported Eyes: No symptom reported Neurological: No symptoms reported Pulmonary/Respiratory: No symptom reported Cardiovascular: Chest pain Gastrointestinal: No symptom reported Genitourinary: No symptom reported Musculoskeletal: No symptom reported Skin: Left gluteal abscess Psychiatric: No symptom reported Endocrine: No symptom reported Hemotologic/Lymphatic: No symptom reported Vital Signs Vital Signs Date Time Temp Pulse Resp B/P (MAP) Pulse Ox O2 Delivery O2 Flow Rate FiO2 05/11/24 17:00 98.2 81 19 110/64 (79) 98 98.2 05/11/24 08:00 Room Air* 0 21 Physical Exam General Appearance: Cooperative. Well developed. Obese. In no acute distress Head Exam: Normal inspection Neck Exam: Normal inspection. Non-tender. Normal alignment Pulmonary/Respiratory: Chest non-tender. Clear bilateral breath sounds Cardiovascular/Chest: Regular rate and rhythm. S1, S2. Sinus rhythm. No murmurs. No JVD. Peripheral Pulses: 2+ Radial (R). 2+ Radial (L). 2+ Pedal (R). 2+ Pedal (L) Abdominal Exam: Normal bowel sounds. Soft. Nontender. No hepatospenomegaly. No masses Ankle Exam: Negative ankle edema Lower extremities: Negative lower extremity edema Neuro/Mental Status: A&O x4. Coherent Thoughts/Psych: Normal thought pattern. Appropriate mood and affect. Good judgement and insight Appearance: In no acute distress Skin Exam: See wound care pictures Labs/Diagnostic Data Labs Test 05/11/24 16:19 05/11/24 06:29 05/10/24 06:35 05/09/24 19:05 Range/Units Troponin I High Sensitivity < 3 L </=34 ng/L White Blood Count 8.3 4.4-10.8 10^3/uL Red Blood Count 4.14 4.0-5.20 10^6/uL Hemoglobin 10.9 L 12.2-16.2 g/dL Hematocrit 32.6 L 36.0-46.0 % Mean Corpuscular Volume 78.8 L 80.0-100.0 fL Mean Corpuscular Hemoglobin 26.4 L 28.0-32.0 pg Mean Corpuscular Hemoglobin Concent 33.5 32.0-36.0 g/dL Red Cell Distribution Width 14.1 11.8-14.3 % Platelet Count 243 140-450 10^3/uL Mean Platelet Volume 8.7 6.9-10.8 fL Neutrophils (%) (Auto) 37.0-80.0 % Lymphocytes (%) (Auto) 10.0-50.0 % Monocytes (%) (Auto) 0.0-12.0 % Basophils (%) (Auto) 0.0-2.0 % Neutrophils # (Auto) 1.6-8.6 10 ^3/uL Lymphocytes # (Auto) 0.4-5.4 10 ^3/uL Monocytes # (Auto) 0-1.3 10 ^3/uL Differential Total Cells Counted 100.0 100 Neutrophils % (Manual) 68 37.0-80.0 Band Neutrophils % (Manual) 4 Lymphocytes % (Manual) 13 10.0-50.0 Monocytes % (Manual) 15 H 0-12 Eosinophils % (Manual) 0 0-7 Basophils % (Manual) 0 0.0-2.0 Metamyelocytes % (manual) 0 Myelocytes % (Manual) 0 Promyelocytes % (Manual) 0 Blast Cells % (Manual) 0 Reactive Lymphocytes 0 Platelet Estimate Adequate Anisocytosis (manual) Slight Sodium Level 137 136-145 mmol/L Potassium Level 3.5 3.5-5.1 mmol/L Chloride Level 102 98-107 mmol/L Carbon Dioxide Level 28 20-31 mmol/L Anion Gap 7 5-15 Blood Urea Nitrogen 7 L 9-23 mg/dL Creatinine 0.79 0.550-1.02 mg/dL Glomerular Filtration Rate Calc 104 >90 mL/min BUN/Creatinine Ratio 8.9 L 10.0-20.0 Serum Glucose 103 74-106 mg/dL Calcium Level 8.7 8.7-10.4 mg/dL Eosinophils (%) (Auto) 0.2 0.0-7.0 % Eosinophils # (Auto) 0 0-0.8 10 ^3/uL Basophils # (Auto) 0 0-0.2 10 ^3/uL Nucleated Red Blood Cells 0.0 % Total Bilirubin 0.6 0.2-1.0 mg/dL Aspartate Amino Transferase (AST) 36 13-40 U/L Alanine Aminotransferase (ALT) 55 H 7-40 U/L Alkaline Phosphatase 100 46-116 U/L Total Protein 7.0 5.7-8.2 g/dL Albumin 4.0 3.2-4.8 g/dL Lactic Acid Level 1.3 0.4-2.0 mmol/L Assessment Noncardiac chest pain Phlegmon with associated left gluteal abscess Obesity Plan/Recommendation (Dr. Brand) Patient presents with noncardiac chest pain, normal 12 lead electrocardiograms, negative serial troponin levels, and a heart score of 0 points placing her at a low-risk for major cardiac events. Consider NSAIDs for the treatment of noncardiac chest pain episodes as the patient reports morphine makes the pain worse. There is no further cardiac workup indicated at this time. Kindly call if in need to re-consult. Thank you for allowing us to participate in this patient's care. Please call if you have any questions or concerns. This medical document was created using an electronic medical record system with voice recognition software and computerized dictation system. Although this document has been carefully reviewed, there might still be some phonetic and typographical errors. Occasional wrong-word or ``sound-alike substitutions may have occurred due to the inherent limitations of voice recognition software. These areas are purely typographical due to imperfections of the software programs and do not reflect any compromise in the patient's medical care. Please read the chart carefully and recognize, using context, where these substitutions have occurred. Plan discussed with: Patient, Other (Mother) NYHA Physical activity limitations: NA Date of Service: May 11, 2024 Billing Provider: CHERY LARKIN Cardiology Common Codes: [id number] INP/OBS CARE (High) CHERY LARKIN May 11, 2024 18:19
--- NOTE | 2024-05-11 19:28 | DVHINCON2 ---
Consultation - Surgical Date Seen: May 11, 2024 Referring Physician Referring Physician ANA LILIA Reason for Consultation left buttock abscess History of Present Illness History of Present Illness Patient is a pleasant but morbidly obese 29-year-old female who arrives the ED today via EMS on 05/09/24 for evaluation of a left gluteal abscess that began approximately two days ago and has worsened tremendously to since initial presentation. Patient states she can barely sit down without severe pain. Patient denies any fever nausea or vomiting. Patient states that she did attempt to pop it but only was able to express blood. Since admission patient has had no fevers. Continues to have significant pain and drainage from the left buttock area. CT scan showed a phlegmon but no drainable abscess collection of the time of admission. Past Medical/Surgical History Past Medical/Surgical History None Family and Social History Family and Social History Occasional marijuana use, occasional alcohol use no tobacco no IV drugs Allergies and medications Allergies: Coded Allergies: NO KNOWN ALLERGIES (Unverified , 06/30/23) Home Meds Active Scripts Dextromethorphan Polistirex (Delsym) 30 Mg/5 Ml Sanjuanita, 10 ML PO [id number], #1 BOTTLE 0 Refills Prov:MAURICIO MUNROE 05/05/24 Amoxicillin & Pot Clavulanate (Amoxicillin/Potassium Cla) 875 Mg Tab, 1 TAB PO BID for 7 Days, #14 TAB 0 Refills Prov:MAURICIO MUNROE 05/05/24 Acetaminophen (Acetaminophen) 500 Mg Tab, 500 MG PO Q4HPRN, #30 TAB 0 Refills Prov:MAURICIO MUNROE 05/05/24 Benzonatate (Benzonatate) 100 Mg Cap, 1 CAP PO TID, #30 CAP Prov:ASHLIE CHESTER PAC 06/30/23 Review of systems Review of Systems: HEENT:Normal, CVS:Normal, RESPIRATORY:Normal, GI:Normal, :Normal, MSK:Normal, NEURO:Normal Examination Vital signs Vital Signs Date Time Temp Pulse Resp B/P (MAP) Pulse Ox O2 Delivery O2 Flow Rate FiO2 05/11/24 17:00 98.2 81 19 110/64 (79) 98 98.2 05/11/24 08:00 Room Air* 0 21 Laboratory Labs Test 05/11/24 16:19 05/11/24 06:29 05/10/24 06:35 05/09/24 19:05 Range/Units Troponin I High Sensitivity < 3 L </=34 ng/L White Blood Count 8.3 4.4-10.8 10^3/uL Red Blood Count 4.14 4.0-5.20 10^6/uL Hemoglobin 10.9 L 12.2-16.2 g/dL Hematocrit 32.6 L 36.0-46.0 % Mean Corpuscular Volume 78.8 L 80.0-100.0 fL Mean Corpuscular Hemoglobin 26.4 L 28.0-32.0 pg Mean Corpuscular Hemoglobin Concent 33.5 32.0-36.0 g/dL Red Cell Distribution Width 14.1 11.8-14.3 % Platelet Count 243 140-450 10^3/uL Mean Platelet Volume 8.7 6.9-10.8 fL Neutrophils (%) (Auto) 37.0-80.0 % Lymphocytes (%) (Auto) 10.0-50.0 % Monocytes (%) (Auto) 0.0-12.0 % Basophils (%) (Auto) 0.0-2.0 % Neutrophils # (Auto) 1.6-8.6 10 ^3/uL Lymphocytes # (Auto) 0.4-5.4 10 ^3/uL Monocytes # (Auto) 0-1.3 10 ^3/uL Differential Total Cells Counted 100.0 100 Neutrophils % (Manual) 68 37.0-80.0 Band Neutrophils % (Manual) 4 Lymphocytes % (Manual) 13 10.0-50.0 Monocytes % (Manual) 15 H 0-12 Eosinophils % (Manual) 0 0-7 Basophils % (Manual) 0 0.0-2.0 Metamyelocytes % (manual) 0 Myelocytes % (Manual) 0 Promyelocytes % (Manual) 0 Blast Cells % (Manual) 0 Reactive Lymphocytes 0 Platelet Estimate Adequate Anisocytosis (manual) Slight Sodium Level 137 136-145 mmol/L Potassium Level 3.5 3.5-5.1 mmol/L Chloride Level 102 98-107 mmol/L Carbon Dioxide Level 28 20-31 mmol/L Anion Gap 7 5-15 Blood Urea Nitrogen 7 L 9-23 mg/dL Creatinine 0.79 0.550-1.02 mg/dL Glomerular Filtration Rate Calc 104 >90 mL/min BUN/Creatinine Ratio 8.9 L 10.0-20.0 Serum Glucose 103 74-106 mg/dL Calcium Level 8.7 8.7-10.4 mg/dL Eosinophils (%) (Auto) 0.2 0.0-7.0 % Eosinophils # (Auto) 0 0-0.8 10 ^3/uL Basophils # (Auto) 0 0-0.2 10 ^3/uL Nucleated Red Blood Cells 0.0 % Total Bilirubin 0.6 0.2-1.0 mg/dL Aspartate Amino Transferase (AST) 36 13-40 U/L Alanine Aminotransferase (ALT) 55 H 7-40 U/L Alkaline Phosphatase 100 46-116 U/L Total Protein 7.0 5.7-8.2 g/dL Albumin 4.0 3.2-4.8 g/dL Lactic Acid Level 1.3 0.4-2.0 mmol/L Examination: GENERAL:Normal, HEENT:Normal, NECK:Normal, LUNGS:Normal, CVS:Normal, ABDOMEN:Normal, MSK:Normal, SKIN:Abnormal (Left gluteal buttock area punctate hole with purulent drainage with induration around it easily expressing purulent drainage. The patient was extremely tender.) Problem List/Assessment/Plan Problems: (1) Abscess, gluteal, left Assessment and Plan Left gluteal abscess Continue IV antibiotics NPO after midnight Incision and drainage of left gluteal abscess on May 12, 2024. Plan discussed with Plan discussed with: Patient Visit Coding Surgery Date of Service if different f: May 11, 2024 Billing Provider: JUSTO ROSARIO Jr., MD Surgery Visit Codes: [id number] - INP CONSULT <80 MIN JUSTO ROSARIO Jr., MD May 11, 2024 19:28
[2024-05-12] VITALS (11 sets, daily range): BP systolic 95–125; BP diastolic 51–72; PULSE 71–95; RESP 17–25; TEMP 97.3–98.8; O2SAT 94–99
[2024-05-12] MEDS: ONDANSETRON HCL 4 MG/2 ML VIAL IV PRN (02:38)
[2024-05-12] MEDS: HYDROcodone-ACET 5/325MG TAB PO PRN (02:38)
[2024-05-12] MEDS ORDERED: MORPHINE SULF PF 5 MG/10 ML VIAL ONE (07:42)
[2024-05-12] MEDS ORDERED: KETOROLAC TROMETH 30 MG/ML 1ML VIAL ONE (07:42)
[2024-05-12] MEDS: ONDANSETRON HCL 4 MG/2 ML VIAL IV ONE (10:15)
[2024-05-12] MEDS ORDERED: KETAMINE 50mg/ML 1ml syringe ONE (10:15)
[2024-05-12] MEDS ORDERED: fentaNYL CITRATE 100 MCG/2 ML VL ONE (10:15)
[2024-05-12] MEDS ORDERED: MIDAZOLAM HCL 2MG/2ML 2ml VIAL (1mg/ml) ONE (10:15)
[2024-05-12] MEDS ORDERED: PROPOFOL 10 MG/ML 20 ML IV ONE (10:15)
[2024-05-12] MEDS ORDERED: HYDROmorphone HCL 2 MG/ML VL/or syr IV PRN ×2 (10:15→15:00)
[2024-05-12] MEDS ORDERED: ROCURONIUM 10MG/ML 10ML VIAL IV ONE (10:16)
[2024-05-12] MEDS ORDERED: METOPROLOL TARTRATE 1MG/1ML-5ML VIAL IV ONE (10:16)
[2024-05-12] MEDS ORDERED: ONDANSETRON HCL 4 MG/2 ML VIAL ONE (10:16)
[2024-05-12] MEDS ORDERED: LIDOCAINE HCL 100 MG/5ML (2%) SYRG INJ IV ONE (10:16)
[2024-05-12] MEDS ORDERED: GLYCOPYRROLATE 0.2 MG/ML 1ML VIAL ONE (10:16)
[2024-05-12 10:36] LABS: Basophils # (auto) 0 10 ^3/uL (0-0.2); Basophils % (auto) 0.2 % (0.0-2.0); Eosinophils # (auto) 0.1 10 ^3/uL (0-0.8); Eosinophils % (auto) 1.5 % (0.0-7.0); Hematocrit 30.9 % (36.0-46.0); Lymphocytes # (auto) 0.9 10 ^3/uL (0.4-5.4); Lymphocytes % (auto) 13.7 % (10.0-50.0); Mean Corpuscular Hemoglobin 25.8 pg (28.0-32.0); Mean Corpuscular Hgb Conc. 32.5 g/dL (32.0-36.0); Mean Corpuscular Volume 79.4 fL (80.0-100.0); Neutrophils # (auto) 4.3 10 ^3/uL (1.6-8.6); Neutrophils % (auto) 68.6 % (37.0-80.0); Platelet Count (auto) 270 10^3/uL (140-450); Red Cell Distribution Width 13.9 % (11.8-14.3); White Blood Cell 6.3 10^3/uL (4.4-10.8)
[2024-05-12 10:49] LABS: INR 1.02 (0.9-1.15); Partial Thromboplastin Time 24.7 SEC (24.5-34.5); Prothrombin Time 10.8 sec (9.3-11.8)
[2024-05-12 10:53] LABS: Chloride 104 mmol/L (98-107); Sodium 139 mmol/L (136-145)
[2024-05-12 10:54] LABS: Anion Gap 6 (5-15); Carbon Dioxide 29 mmol/L (20-31)
[2024-05-12 10:55] LABS: Calcium 8.6 mg/dL (8.7-10.4)
[2024-05-12] MEDS ORDERED: METOCLOPRAMIDE HCL 5MG/ml INJ 2ml VIAL IV ONE (10:56)
[2024-05-12 10:59] LABS: Glucose 94 mg/dL (74-106)
[2024-05-12 11:00] LABS: Blood Urea Nitrogen 8 mg/dL (9-23)
--- NOTE | 2024-05-12 11:21 | DVHPN2 ---
Subjective The patient seen and examined at bedside. The patient still have lots of pain in buttock area. Reviewed: Care Plan, H&P, Labs, Medications, Previous Orders, Radiology Changes from previous H/P or p: No Changes Eyes: No Pain, No Vision change, No Conjunctivae inflammation, No Eyelid inflammation, No Other, No Redness ENT: No Ear pain, No Ear discharge, No Nose pain, No Nose discharge, No Nose congestion, No Mouth pain, No Mouth swelling, No Throat pain, No Throat swelling, No Other Cardiovascular: No Chest Pain, No Palpitations, No Orthopnea, No Paroxysmal Noc. Dyspnea, No Edema, No Lt Headedness, No Other Respiratory: No Cough, No Dry, No Shortness of breath, No SOB with excertion, No Wheezing, No Hemoptysis, No Pleuritic Pain, No Sputum, No Other Gastrointestinal: No Nausea, No Vomiting, No Abdominal Pain, No Diarrhea, No Constipation, No Melena, No Hematochezia, No Other Genitourinary: No Dysuria, No Frequency, No Incontinence, No Hematuria, No Retention, No Other Musculoskeletal: No other, No neck pain, No shoulder pain, No arm pain, No back pain, No hand pain, No leg pain, No foot pain Skin: No Rash, No Lesions, No Jaundice, No Bruising; Other (Abscess to the left gluteal region) Objective Vitals Vital Signs Date Time Temp Pulse Resp B/P (MAP) Pulse Ox O2 Delivery O2 Flow Rate FiO2 05/12/24 08:57 98.8 83 17 105/62 (76) 95 98.8 05/11/24 20:00 Room Air* 0 21 Intake/Output Intake and Output 05/12/24 07:00 Intake Total 2000 ml Output Total 750 ml Balance 1250 ml Intake Oral 900 ml IV Total 1100 ml Output Urine Total 100 ml Stool Total 650 ml # Voids 2 General Appearance: Alert, Oriented X3, Cooperative, No acute distress HEENT: Atraumatic, PERRLA, EOMI, Mucous membr. moist/pink Neck: Supple Cardiovascular: Regular rate, Normal S1, Normal S2, No murmurs, Gallops, Rubs Abdomen: Normal bowel sounds, Soft, No tenderness Neuro: Cranial nerves 3-12 NL Psych/Mental Status: Mental status NL Medications Current Medications Medications Dose Ordered Sig/Tameka Route Start Time Stop Time Status Last Admin Dose Admin Sodium Chloride 1,000 ml @ 60 mls/hr [id number] IV 05/09/24 23:45 05/12/24 02:39 60 MLS/HR Ondansetron HCl 4 mg Q4HP PRN IV 05/09/24 23:45 05/12/24 02:38 4 MG Docusate Sodium 100 mg BIDPRN PRN PO 05/09/24 23:45 Zinc Sulfate 220 mg DAILY PO 05/10/24 10:00 05/11/24 09:30 220 MG Ascorbic Acid 500 mg BID PO 05/10/24 10:00 05/11/24 21:20 500 MG Acetaminophen 650 mg Q6HP PRN PO 05/09/24 23:45 05/12/24 06:04 650 MG Morphine Sulfate 2 mg Q4HPRN PRN IV 05/09/24 23:45 05/10/24 13:20 2 MG Nitroglycerin 0.4 mg Q5MINP PRN SL 05/09/24 23:45 Morphine Sulfate 2 mg Q30M PRN IV 05/09/24 23:45 Piperacillin Sod/ Tazobactam Sod 100 ml @ 25 mls/hr Q8H IV 05/10/24 02:30 05/12/24 02:39 25 MLS/HR Acetaminophen/ Hydrocodone Bitart 1 tab Q8HPRN PRN PO 05/12/24 02:00 05/12/24 02:38 1 TAB Hydromorphone HCl 0.5 mg Q2HP PRN IV 05/12/24 15:00 05/12/24 18:00 Hydromorphone HCl 0.5 mg Q10M PRN IV 05/12/24 10:15 05/12/24 15:00 Hydromorphone HCl 0.25 mg Q10M PRN IV 05/12/24 10:15 05/12/24 15:00 Laboratory Results Laboratory Tests 05/12/24 09:58 Chemistry Test 05/12/24 09:58 Calcium Level 8.6 mg/dL (8.7-10.4) L Coagulation Test 05/12/24 09:58 Prothrombin Time Pending Prothrombin Time INR Pending Activated Partial Thromboplast Time Pending Labs and/or images reviewed: Labs reviewed by me Assessment/Plan Assessment/Plan Phlegmon Intractable pain Left gluteal abscess Plan Continue current management with IV antibiotic Zosyn Continue pain medications. Will follow up with the phlegmon. Anticipate IR consult if possible abscess that we can drain. Plan discussed with: Patient My Orders Orders - JOANNE SUNG MD Procedure Category Date Status Time * Cardiology Consult CONS 05/11/24 Transmitted 14:56 * Surgical Consult CONS 05/11/24 Transmitted Cleanse Wound With OSBALDO 05/11/24 In Process Wound Clean 14:47 * Dietary Consult CONS 05/11/24 Transmitted 14:47 Specialty Bed Mattress ORDERS 05/11/24 Transmitted 14:47 Date of Service: May 12, 2024 Billing Provider: JOANNE SUNG MD Common Visit Codes: [id number] INP/OBS CARE(HIGH) JOANNE SUNG MD May 12, 2024 11:21
[2024-05-12] MEDS ORDERED: SUGAMMADEX 200mg/2ml Vial (100MG/ML) IV ONE (12:15)
--- NOTE | 2024-05-12 12:24 | POSTOP ---
Post-Operative Note Post-Operative Note Preop Diagnosis Left gluteal abscess Postop Diagnosis: Same Operation performed Incision and drainage of left gluteal abscess Specimen Cultures x3 to left gluteal abscess Anesthesia: General Anesthesiologist: nguen Blood Loss(fluid mgmt) 50 mL Surgeon Manuel Gonzalez MD Date 05/12/24 Time 12:23 MANUEL GONZALEZ Jr., MD May 12, 2024 12:24
--- NOTE | 2024-05-12 12:26 | DVHOP2 ---
Operative Report - 2 Report Details Date: 05/12/24 Preop Diagnosis: Left gluteal abscess Postop Diagnosis: Same Surgeon: Manuel Gonzalez MD Anesthesiologist: rui Anesthesia: General Consent: The patient was informed of the risks and benefits of the procedure. These include but are not limited to complications of anesthesia, postoperative infection, incomplete relief of symptoms, recurrence of symptoms, damage to blood vessels, nerves and tendons, deep venous thrombosis, pulmonary embolism and possible need for repeat surgery in the future. Estimated Blood Loss: 50 mL Name of Procedure Performed Incision and drainage of left gluteal abscess Procedure Details Procedure Details: Patient was identified in the preop hold area is being Mrs. Masterson. She had been consented in the preop by myself she was brought back to the operating room after adequate induction of anesthesia she was placed in a prone position a shilpi-knife position. The left and right gluteal area were prepped and draped normal surgical fashion a cruciate incision was made over the exit site of the draining abscess. Cultures were sent off x3 of purulent bloody drainage from the abscess cavity. With finger sweep technique the cavity was examined and appeared to be proximally 10 cm in diameter with some areas of loculation which were broken up with the fingers sweep technique. Once this was completed and all fluid was evacuated. The cavity was then pulse irrigated out with 2 L of saline solution at the end of the hemostasis was obtained with Bovie cauterization and the the abscess cavity was then packed with Betadine-soaked gauze/Kerlix. A sterile dressing was applied over top of that the patient woke without any difficulty taken to the PACU in a stable condition sponge and needle counts were correct. Specimen: Cultures x3 to left gluteal abscess Condition Good Disposition pacu MANUEL GONZALEZ Jr., MD May 12, 2024 12:26
[2024-05-12] MEDS: IPRATROPIUM BROM 0.5 MG/2.5ML INH SOL NEB ONE (12:47)
[2024-05-12] MEDS: ALBUTEROL SULF 2.5 MG/0.5ML(0.5%) NEB SOLN NEB ONE (12:47)
[2024-05-12] MEDS: HYDROmorphone HCL 2 MG/ML VL/or syr IV PRN (13:02)
[2024-05-12] MEDS ORDERED: hydrALAZINE HCL 20 MG/ML VL IV PRN (17:15)
[2024-05-12] MEDS: BUPIVACAINE 0.5% P/F INJ 10 ML VIAL ONE (18:18)
[2024-05-12] MEDS: BUPIVACAINE W/ EPINEPH 0.5% INJ 50ML MDV IJ ONE (18:18)
[2024-05-12] MEDS: SUCCINYLCHOLINE CHLORIDE 20 MG/ML 10ML VIAL IV ONE (18:18)
[2024-05-12] MEDS: VANCOMYCIN HCL 1000 MG VL ONE (18:18)
[2024-05-12] MEDS: TRANEXAMIC ACID 0 ML ONE (18:18)
[2024-05-12] MEDS: ceFAZolin 2 GM/D5W100ml 100 ML IV ONE (18:18)
[2024-05-13] VITALS (8 sets, daily range): BP systolic 99–136; BP diastolic 46–99; PULSE 66–95; RESP 15–20; TEMP 97.6–98.6; O2SAT 91–98
[2024-05-13] MEDS: HYDROcodone-ACET 5/325MG TAB PO ONE (00:44)
[2024-05-13 07:30] LABS: Basophils # (auto) 0 10 ^3/uL (0-0.2); Basophils % (auto) 0.3 % (0.0-2.0); Eosinophils # (auto) 0.1 10 ^3/uL (0-0.8); Nucleated Red Blood Cells % 0.1 %
[2024-05-13 07:33] LABS: Eosinophils % (auto) 1.9 % (0.0-7.0); Hematocrit 30.3 % (36.0-46.0); Hemoglobin 9.8 g/dL (12.2-16.2); Mean Corpuscular Hemoglobin 25.8 pg (28.0-32.0); Mean Corpuscular Hgb Conc. 32.5 g/dL (32.0-36.0); Mean Corpuscular Volume 79.5 fL (80.0-100.0); Monocytes # (auto) 0.8 10 ^3/uL (0-1.3); Monocytes % (auto) 12.5 % (0.0-12.0); Neutrophils # (auto) 4.2 10 ^3/uL (1.6-8.6); Neutrophils % (auto) 69.3 % (37.0-80.0); Platelet Count (auto) 298 10^3/uL (140-450); Red Blood Cells 3.81 10^6/uL (4.0-5.20); Red Cell Distribution Width 13.7 % (11.8-14.3)
[2024-05-13 07:37] LABS: Calcium 8.7 mg/dL (8.7-10.4); Chloride 102 mmol/L (98-107); Sodium 138 mmol/L (136-145)
[2024-05-13 07:38] LABS: Anion Gap 7 (5-15); Carbon Dioxide 29 mmol/L (20-31)
[2024-05-13 07:43] LABS: Glucose 92 mg/dL (74-106)
[2024-05-13 07:57] LABS: Blood Urea Nitrogen 6 mg/dL (9-23)
--- NOTE | 2024-05-13 10:31 | DVHPN2 ---
Subjective The patient seen and examined at bedside. The patient still have lots of pain in buttock area. The dressing is soaking wet with blood. Reviewed: Care Plan, H&P, Labs, Medications, Previous Orders, Radiology Changes from previous H/P or p: No Changes Eyes: No Pain, No Vision change, No Conjunctivae inflammation, No Eyelid inflammation, No Other, No Redness ENT: No Ear pain, No Ear discharge, No Nose pain, No Nose discharge, No Nose congestion, No Mouth pain, No Mouth swelling, No Throat pain, No Throat swelling, No Other Cardiovascular: No Chest Pain, No Palpitations, No Orthopnea, No Paroxysmal Noc. Dyspnea, No Edema, No Lt Headedness, No Other Respiratory: No Cough, No Dry, No Shortness of breath, No SOB with excertion, No Wheezing, No Hemoptysis, No Pleuritic Pain, No Sputum, No Other Gastrointestinal: No Nausea, No Vomiting, No Abdominal Pain, No Diarrhea, No Constipation, No Melena, No Hematochezia, No Other Genitourinary: No Dysuria, No Frequency, No Incontinence, No Hematuria, No Retention, No Other Musculoskeletal: No other, No neck pain, No shoulder pain, No arm pain, No back pain, No hand pain, No leg pain, No foot pain Skin: No Rash, No Lesions, No Jaundice, No Bruising; Other (Abscess to the left gluteal region) Objective Vitals Vital Signs Date Time Temp Pulse Resp B/P (MAP) Pulse Ox O2 Delivery O2 Flow Rate FiO2 05/13/24 09:00 98.4 77 20 105/62 (76) 95 98.4 05/12/24 20:00 Room Air* 0 21 Intake/Output Intake and Output 05/13/24 07:00 Intake Total 900 ml Balance 900 ml Intake Oral 600 ml IV Total 300 ml # Voids 2 General Appearance: Alert, Oriented X3, Cooperative, No acute distress HEENT: Atraumatic, PERRLA, EOMI, Mucous membr. moist/pink Neck: Supple Cardiovascular: Regular rate, Normal S1, Normal S2, No murmurs, Gallops, Rubs Abdomen: Normal bowel sounds, Soft, No tenderness Neuro: Cranial nerves 3-12 NL Psych/Mental Status: Mental status NL Medications Current Medications Medications Dose Ordered Sig/Tameka Route Start Time Stop Time Status Last Admin Dose Admin Sodium Chloride 1,000 ml @ 60 mls/hr [id number] IV 05/09/24 23:45 05/13/24 06:26 60 MLS/HR Ondansetron HCl 4 mg Q4HP PRN IV 05/09/24 23:45 05/12/24 14:48 4 MG Docusate Sodium 100 mg BIDPRN PRN PO 05/09/24 23:45 Zinc Sulfate 220 mg DAILY PO 05/10/24 10:00 05/13/24 08:29 220 MG Ascorbic Acid 500 mg BID PO 05/10/24 10:00 05/13/24 08:29 500 MG Acetaminophen 650 mg Q6HP PRN PO 05/09/24 23:45 05/12/24 18:31 650 MG Morphine Sulfate 2 mg Q4HPRN PRN IV 05/09/24 23:45 05/10/24 13:20 2 MG Nitroglycerin 0.4 mg Q5MINP PRN SL 05/09/24 23:45 Morphine Sulfate 2 mg Q30M PRN IV 05/09/24 23:45 Piperacillin Sod/ Tazobactam Sod 100 ml @ 25 mls/hr Q8H IV 05/10/24 02:30 05/13/24 02:54 25 MLS/HR Acetaminophen/ Hydrocodone Bitart 1 tab Q8HPRN PRN PO 05/12/24 02:00 05/13/24 08:30 1 TAB Hydralazine HCl 10 mg Q6HP PRN IV 05/12/24 17:15 Cancel Laboratory Results Laboratory Tests 05/13/24 06:03 05/13/24 07:03 Chemistry Test 05/13/24 06:03 Calcium Level 8.7 mg/dL (8.7-10.4) Labs and/or images reviewed: Labs reviewed by me Assessment/Plan Assessment/Plan Intractable buttock pain Left gluteal abscess Plan Continue current management with IV antibiotic Zosyn Continue pain medications. The patient is subsequently has I and D done yesterday. We will continuing to monitor the wound. Waiting for wound care nurse to see the patient. We will change dressing for now. Advised the patient to ask for pain medication prior to dressing changing. This medical document was created using an electronic medical record system with [employer] computerized dictation system. Although this document has been carefully reviewed, there may still be some phonetic and typographical errors. These areas are purely typographical due to imperfections of the software programs, and do not reflect any compromise in the patient's medical care. Plan discussed with: Patient Date of Service: May 13, 2024 Billing Provider: JOANNE SUNG MD Common Visit Codes: [id number] INP/OBS CARE(HIGH) JOANNE SUNG MD May 13, 2024 10:31
--- NOTE | 2024-05-13 15:41 | DVHSR ---
APPROVED REPORT EXAM: Two-dimensional and M-mode echocardiogram with Doppler and color Doppler. Blood Pressure: 95/57 mmHg INDICATION Chest Pain RISK FACTORS Height: 65, Weight: 228 DIMENSIONS LVDd4.8 (3.8-5.7cm)LA (2D)4.2 (1.9-4.0cm)Aortic Root2.9 (2.0-3.7cm) LVDs3.3 (2.5-4.0cm)LA (MM) (1.9-4.0cm)Aortic Cusp Exc1.8 (1.5-2.0cm) EF (%) 60.0 (55-70%)Rt. Atrium (1.9-4.0cm)Asc. Aorta cm IVSd1.2 (0.7-1.1cm)RV (D) (1.8-2.4cm) PWd1.2 (0.7-1.1cm) Mitral Valve MitralMitral Stenosis E wave0.73m/sMV Mean GR.mmHg A wave0.54m/sMV Peak GR.36mmHg E/A ratio1.42D MVAcm2 DECEL [id number] 1/2 Timems Aortic Valve Aortic ValveAortic Stenosis V10.96m/Simona Mean GR.5mmHg V21.52m/Simona Peak GR.9mmHg LVOT Diameter2.1 (1.8-2.4cm)Doppler AVA2.19cm2 Pulmonic Valve V21.17m/s Tricuspid Valve TR Velocity2.51m/s [id number] Other Information Technically limited study due to patient laying on right side. Conclusion Sinus rhythm. Concentric LVH with left atrial enlargement. Valves appear to be normal. 55-60% ejection fraction with normal RV function. Mild TR. No pericardial effusion masses or vegetations.
--- NOTE | 2024-05-13 16:51 | ECG ---
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
[2024-05-13] MEDS: HYDROcodone-ACET 5/325MG TAB PO PRN (18:29)
[2024-05-14] VITALS (9 sets, daily range): BP systolic 99–131; BP diastolic 57–86; PULSE 64–71; RESP 18–20; TEMP 98.1–98.9; O2SAT 94–98
[2024-05-14 07:16] LABS: Chloride 104 mmol/L (98-107); Potassium 4.9 mmol/L (3.5-5.1); Sodium 138 mmol/L (136-145)
[2024-05-14 07:19] LABS: Anion Gap 8 (5-15); Carbon Dioxide 26 mmol/L (20-31)
[2024-05-14 07:22] LABS: BUN/Creatinine Ratio 14.9 (10.0-20.0); Blood Urea Nitrogen 11 mg/dL (9-23); Glucose 93 mg/dL (74-106)
[2024-05-14 07:24] LABS: Calcium 8.2 mg/dL (8.7-10.4)
[2024-05-14 10:40] LABS: Hemoglobin 10.2 g/dL (12.2-16.2); Mean Corpuscular Hemoglobin 25.7 pg (28.0-32.0)
[2024-05-14 10:42] LABS: Hematocrit 31.3 % (36.0-46.0); Mean Corpuscular Hgb Conc. 32.6 g/dL (32.0-36.0); Mean Corpuscular Volume 78.8 fL (80.0-100.0); Platelet Count (auto) 320 10^3/uL (140-450); Red Blood Cells 3.97 10^6/uL (4.0-5.20); Red Cell Distribution Width 13.9 % (11.8-14.3); White Blood Cell 4.9 10^3/uL (4.4-10.8)
[2024-05-14 10:43] LABS: Basophils % (manual) 0 (0.0-2.0); Blast Cells 0; Metamyelocytes % 0; Myelocytes % 0; Promyelocytes % 0; Reactive Lymphocytes 0
--- NOTE | 2024-05-14 11:50 | DVHPN2 ---
Subjective The patient seen and examined at bedside. The patient still have lots of pain in buttock area. The dressing is soaking wet with blood. Reviewed: Care Plan, H&P, Labs, Medications, Previous Orders, Radiology Changes from previous H/P or p: No Changes Eyes: No Pain, No Vision change, No Conjunctivae inflammation, No Eyelid inflammation, No Other, No Redness ENT: No Ear pain, No Ear discharge, No Nose pain, No Nose discharge, No Nose congestion, No Mouth pain, No Mouth swelling, No Throat pain, No Throat swelling, No Other Cardiovascular: No Chest Pain, No Palpitations, No Orthopnea, No Paroxysmal Noc. Dyspnea, No Edema, No Lt Headedness, No Other Respiratory: No Cough, No Dry, No Shortness of breath, No SOB with excertion, No Wheezing, No Hemoptysis, No Pleuritic Pain, No Sputum, No Other Gastrointestinal: No Nausea, No Vomiting, No Abdominal Pain, No Diarrhea, No Constipation, No Melena, No Hematochezia, No Other Genitourinary: No Dysuria, No Frequency, No Incontinence, No Hematuria, No Retention, No Other Musculoskeletal: No other, No neck pain, No shoulder pain, No arm pain, No back pain, No hand pain, No leg pain, No foot pain Skin: No Rash, No Lesions, No Jaundice, No Bruising; Other (Abscess to the left gluteal region) Objective Vitals Vital Signs Date Time Temp Pulse Resp B/P (MAP) Pulse Ox O2 Delivery O2 Flow Rate FiO2 05/14/24 11:37 65 20 122/86 05/14/24 10:00 96 Room Air* 0 21 05/14/24 08:43 98.2 98.2 Intake/Output Intake and Output 05/14/24 07:00 Intake Total 1450 ml Balance 1450 ml Intake Oral 1250 ml IV Total 200 ml # Voids 1 General Appearance: Alert, Oriented X3, Cooperative, No acute distress HEENT: Atraumatic, PERRLA, EOMI, Mucous membr. moist/pink Neck: Supple Cardiovascular: Regular rate, Normal S1, Normal S2, No murmurs, Gallops, Rubs Abdomen: Normal bowel sounds, Soft, No tenderness Neuro: Cranial nerves 3-12 NL Psych/Mental Status: Mental status NL Medications Current Medications Medications Dose Ordered Sig/Tameka Route Start Time Stop Time Status Last Admin Dose Admin Sodium Chloride 1,000 ml @ 60 mls/hr [id number] IV 05/09/24 23:45 05/13/24 06:26 60 MLS/HR Ondansetron HCl 4 mg Q4HP PRN IV 05/09/24 23:45 05/12/24 14:48 4 MG Docusate Sodium 100 mg BIDPRN PRN PO 05/09/24 23:45 Zinc Sulfate 220 mg DAILY PO 05/10/24 10:00 05/14/24 09:33 220 MG Ascorbic Acid 500 mg BID PO 05/10/24 10:00 05/14/24 09:33 500 MG Acetaminophen 650 mg Q6HP PRN PO 05/09/24 23:45 05/12/24 18:31 650 MG Morphine Sulfate 2 mg Q4HPRN PRN IV 05/09/24 23:45 05/14/24 11:37 2 MG Nitroglycerin 0.4 mg Q5MINP PRN SL 05/09/24 23:45 Morphine Sulfate 2 mg Q30M PRN IV 05/09/24 23:45 Piperacillin Sod/ Tazobactam Sod 100 ml @ 25 mls/hr Q8H IV 05/10/24 02:30 05/14/24 09:33 25 MLS/HR Hydralazine HCl 10 mg Q6HP PRN IV 05/12/24 17:15 Cancel Acetaminophen/ Hydrocodone Bitart 1 tab Q4HPRN PRN PO 05/13/24 10:45 05/14/24 01:09 1 TAB Laboratory Results Laboratory Tests 05/14/24 06:44 05/14/24 09:20 Chemistry Test 05/14/24 06:44 Calcium Level 8.2 mg/dL (8.7-10.4) L Microbiology Microbiology Date/Time Source Procedure Growth Status 05/12/24 12:01 Other Gram Stain - Final Resulted 05/12/24 12:01 Other Anaerobic Culture - Preliminary Resulted 05/12/24 12:01 Aerobic Culture - Final Methicillin Resistant S.aureus Resulted Labs and/or images reviewed: Labs reviewed by me Assessment/Plan Assessment/Plan Intractable buttock pain Left gluteal abscess Plan Continue current management with IV antibiotic Zosyn Continue pain medications. The patient is subsequently has I and D done yesterday. We will continuing to monitor the wound. Continue wound care. This medical document was created using an electronic medical record system with [employer] computerized dictation system. Although this document has been carefully reviewed, there may still be some phonetic and typographical errors. These areas are purely typographical due to imperfections of the software programs, and do not reflect any compromise in the patient's medical care. Plan discussed with: Patient My Orders Orders - JOANNE SUNG MD Procedure Category Date Status Time Electrocardigram EKG 05/13/24 Resulted 14:19 Manual Differential LAB 05/14/24 In Process 09:20 Date of Service: May 14, 2024 Billing Provider: JOANNE SUNG MD Common Visit Codes: [id number] INP/OBS CARE(HIGH) JOANNE SUNG MD May 14, 2024 11:50
[2024-05-14 12:24] LABS: Band Neutrophils % (manual) 5; Eosinophils % (manual) 2 (0-7); Lymphocytes % (manual) 23 (10.0-50.0); Monocytes % (manual) 2 (0-12); Platelet Estimate Adequate
[2024-05-15] VITALS (7 sets, daily range): BP systolic 97–146; BP diastolic 55–86; PULSE 59–75; RESP 17–20; TEMP 97.7–98.3; O2SAT 95–98
[2024-05-15 06:03] LABS: Basophils # (auto) 0 10 ^3/uL (0-0.2); Eosinophils # (auto) 0.1 10 ^3/uL (0-0.8); Eosinophils % (auto) 2.2 % (0.0-7.0); Hematocrit 30.9 % (36.0-46.0); Hemoglobin 10.1 g/dL (12.2-16.2); Lymphocytes % (auto) 20.1 % (10.0-50.0); Mean Corpuscular Hemoglobin 25.8 pg (28.0-32.0); Mean Corpuscular Hgb Conc. 32.6 g/dL (32.0-36.0); Mean Corpuscular Volume 79.2 fL (80.0-100.0); Monocytes # (auto) 0.5 10 ^3/uL (0-1.3); Neutrophils # (auto) 3.2 10 ^3/uL (1.6-8.6); Neutrophils % (auto) 66.7 % (37.0-80.0); Nucleated Red Blood Cells % 0.1 %; Platelet Count (auto) 304 10^3/uL (140-450); Red Cell Distribution Width 13.8 % (11.8-14.3); White Blood Cell 4.8 10^3/uL (4.4-10.8)
[2024-05-15 06:16] LABS: Chloride 103 mmol/L (98-107); Potassium 4.3 mmol/L (3.5-5.1); Sodium 136 mmol/L (136-145)
[2024-05-15 06:17] LABS: Anion Gap 6 (5-15); Carbon Dioxide 27 mmol/L (20-31)
[2024-05-15 06:22] LABS: BUN/Creatinine Ratio 12.5 (10.0-20.0); Glucose 104 mg/dL (74-106)
[2024-05-15 06:24] LABS: Blood Urea Nitrogen 8 mg/dL (9-23)
[2024-05-15] MEDS: LIDOCAINE 1% (LOCAL ANESTH.) PF 5ml SDV ID ONE (18:46)
[2024-05-15] MEDS: SODIUM CHLOR 0.9% PF (SALINE LOCK) 10ML VIAL/SYR IV SCH (21:35)
[2024-05-16] VITALS (7 sets, daily range): BP systolic 109–131; BP diastolic 65–82; PULSE 63–85; RESP 18–20; TEMP 97.5–98.4; O2SAT 94–100
[2024-05-16] MEDS: LINEZOLID 600MG/300ML 300 ML IV ONE (13:25)
--- NOTE | 2024-05-16 15:22 | DVHPN2 ---
Subjective The patient seen and examined at bedside. The patient still have lots of pain in buttock area. Reviewed: Care Plan, H&P, Labs, Medications, Previous Orders, Radiology Changes from previous H/P or p: No Changes Eyes: No Pain, No Vision change, No Conjunctivae inflammation, No Eyelid inflammation, No Other, No Redness ENT: No Ear pain, No Ear discharge, No Nose pain, No Nose discharge, No Nose congestion, No Mouth pain, No Mouth swelling, No Throat pain, No Throat swelling, No Other Cardiovascular: No Chest Pain, No Palpitations, No Orthopnea, No Paroxysmal Noc. Dyspnea, No Edema, No Lt Headedness, No Other Respiratory: No Cough, No Dry, No Shortness of breath, No SOB with excertion, No Wheezing, No Hemoptysis, No Pleuritic Pain, No Sputum, No Other Gastrointestinal: No Nausea, No Vomiting, No Abdominal Pain, No Diarrhea, No Constipation, No Melena, No Hematochezia, No Other Genitourinary: No Dysuria, No Frequency, No Incontinence, No Hematuria, No Retention, No Other Musculoskeletal: No other, No neck pain, No shoulder pain, No arm pain, No back pain, No hand pain, No leg pain, No foot pain Skin: No Rash, No Lesions, No Jaundice, No Bruising; Other (Abscess to the left gluteal region) Objective Vitals Vital Signs Date Time Temp Pulse Resp B/P (MAP) Pulse Ox O2 Delivery O2 Flow Rate FiO2 05/16/24 12:00 98.2 63 19 117/72 (87) 97 98.2 05/16/24 08:00 Room Air* 0 21 Intake/Output Intake and Output 05/16/24 07:00 Intake Total 1500 ml Output Total 600 ml Balance 900 ml Intake Oral 1000 ml IV Total 500 ml Output Urine Total 600 ml # Voids 5 General Appearance: Alert, Oriented X3, Cooperative, No acute distress HEENT: Atraumatic, PERRLA, EOMI, Mucous membr. moist/pink Neck: Supple Cardiovascular: Regular rate, Normal S1, Normal S2, No murmurs, Gallops, Rubs Abdomen: Normal bowel sounds, Soft, No tenderness Neuro: Cranial nerves 3-12 NL Psych/Mental Status: Mental status NL Medications Current Medications Medications Dose Ordered Sig/Tameak Route Start Time Stop Time Status Last Admin Dose Admin Sodium Chloride 1,000 ml @ 60 mls/hr [id number] IV 05/09/24 23:45 05/16/24 06:02 60 MLS/HR Ondansetron HCl 4 mg Q4HP PRN IV 05/09/24 23:45 05/12/24 14:48 4 MG Docusate Sodium 100 mg BIDPRN PRN PO 05/09/24 23:45 Zinc Sulfate 220 mg DAILY PO 05/10/24 10:00 05/16/24 09:28 220 MG Ascorbic Acid 500 mg BID PO 05/10/24 10:00 05/16/24 09:27 500 MG Acetaminophen 650 mg Q6HP PRN PO 05/09/24 23:45 05/12/24 18:31 650 MG Morphine Sulfate 2 mg Q4HPRN PRN IV 05/09/24 23:45 05/15/24 11:05 2 MG Nitroglycerin 0.4 mg Q5MINP PRN SL 05/09/24 23:45 Morphine Sulfate 2 mg Q30M PRN IV 05/09/24 23:45 Piperacillin Sod/ Tazobactam Sod 100 ml @ 25 mls/hr Q8H IV 05/10/24 02:30 05/16/24 09:28 25 MLS/HR Hydralazine HCl 10 mg Q6HP PRN IV 05/12/24 17:15 Cancel Acetaminophen/ Hydrocodone Bitart 1 tab Q4HPRN PRN PO 05/13/24 10:45 05/15/24 22:10 1 TAB Sodium Chloride 10 ml QSHIFT@10,22 IV 05/15/24 22:00 05/16/24 09:29 10 ML Laboratory Results Laboratory Tests 05/15/24 05:08 Microbiology Microbiology Date/Time Source Procedure Growth Status 05/12/24 12:01 Other Gram Stain - Final Resulted 05/12/24 12:01 Other Anaerobic Culture - Preliminary Resulted 05/12/24 12:01 Aerobic Culture - Final Methicillin Resistant S.aureus Resulted Labs and/or images reviewed: Labs reviewed by me Assessment/Plan Assessment/Plan MRSA infection Intractable buttock pain Left gluteal abscess Plan Continue current management with IV antibiotic Zosyn Continue pain medications. The patient is subsequently has I and D done. We will continuing to monitor the wound. Continuing wound care. The wound culture showed MRSA that is sensitive to Zyvox and daptomycin. Waiting for PICC line placement and we will send patient home with IV Zyvox 600 mg IV b.i.d. for 14 days. Also home health for wound care. Discussed with patient and mom at bedside regarding to what is MRSA and how to treat it. The patient was concerned that she was isolated in the room I explained to her that is the hospital policy to isolate MRSA infection. Discharge planning when home health set up for IV antibiotic and wound care. This medical document was created using an electronic medical record system with [employer] computerized dictation system. Although this document has been carefully reviewed, there may still be some phonetic and typographical errors. These areas are purely typographical due to imperfections of the software programs, and do not reflect any compromise in the patient's medical care. Plan discussed with: Patient My Orders Orders - JOANNE SUNG MD Procedure Category Date Status Time Nursing Protocol Picc OSBALDO 05/15/24 In Process 18:16 Change Dressing Prn OSBALDO 05/15/24 In Process 18:16 PICC BD 05/15/24 Transmitted 18:16 Sodium Chloride Lock PHA 05/15/24 In Process (Saline Lock Ns) 22:00 Do Not Use Picc For OSBALDO 05/15/24 In Process Blood Cult 18:16 May Draw Blood From OSBALDO 05/15/24 In Process Picc 18:16 Ok To Use Picc OSBALDO 05/15/24 In Process 18:16 Change Picc Dressing [facility] 05/15/24 In Process Q7 Days 18:16 Date of Service: May 16, 2024 Billing Provider: JOANNE SUNG MD Common Visit Codes: [id number] INP/OBS CARE(HIGH) JOANNE SUNG MD May 16, 2024 15:22
--- NOTE | 2024-05-16 15:22 | DVHPN2 ---
Subjective The patient seen and examined at bedside. The patient still have lots of pain in buttock area. The dressing is still soaking with fluid. Reviewed: Care Plan, H&P, Labs, Medications, Previous Orders, Radiology Changes from previous H/P or p: No Changes Eyes: No Pain, No Vision change, No Conjunctivae inflammation, No Eyelid inflammation, No Other, No Redness ENT: No Ear pain, No Ear discharge, No Nose pain, No Nose discharge, No Nose congestion, No Mouth pain, No Mouth swelling, No Throat pain, No Throat swelling, No Other Cardiovascular: No Chest Pain, No Palpitations, No Orthopnea, No Paroxysmal Noc. Dyspnea, No Edema, No Lt Headedness, No Other Respiratory: No Cough, No Dry, No Shortness of breath, No SOB with excertion, No Wheezing, No Hemoptysis, No Pleuritic Pain, No Sputum, No Other Gastrointestinal: No Nausea, No Vomiting, No Abdominal Pain, No Diarrhea, No Constipation, No Melena, No Hematochezia, No Other Genitourinary: No Dysuria, No Frequency, No Incontinence, No Hematuria, No Retention, No Other Musculoskeletal: No other, No neck pain, No shoulder pain, No arm pain, No back pain, No hand pain, No leg pain, No foot pain Skin: No Rash, No Lesions, No Jaundice, No Bruising; Other (Abscess to the left gluteal region) Objective Vitals Vital Signs Date Time Temp Pulse Resp B/P (MAP) Pulse Ox O2 Delivery O2 Flow Rate FiO2 05/16/24 12:00 98.2 63 19 117/72 (87) 97 98.2 05/16/24 08:00 Room Air* 0 21 Intake/Output Intake and Output 05/16/24 07:00 Intake Total 1500 ml Output Total 600 ml Balance 900 ml Intake Oral 1000 ml IV Total 500 ml Output Urine Total 600 ml # Voids 5 General Appearance: Alert, Oriented X3, Cooperative, No acute distress HEENT: Atraumatic, PERRLA, EOMI, Mucous membr. moist/pink Neck: Supple Cardiovascular: Regular rate, Normal S1, Normal S2, No murmurs, Gallops, Rubs Abdomen: Normal bowel sounds, Soft, No tenderness Neuro: Cranial nerves 3-12 NL Psych/Mental Status: Mental status NL Medications Current Medications Medications Dose Ordered Sig/Tameka Route Start Time Stop Time Status Last Admin Dose Admin Sodium Chloride 1,000 ml @ 60 mls/hr [id number] IV 05/09/24 23:45 05/16/24 06:02 60 MLS/HR Ondansetron HCl 4 mg Q4HP PRN IV 05/09/24 23:45 05/12/24 14:48 4 MG Docusate Sodium 100 mg BIDPRN PRN PO 05/09/24 23:45 Zinc Sulfate 220 mg DAILY PO 05/10/24 10:00 05/16/24 09:28 220 MG Ascorbic Acid 500 mg BID PO 05/10/24 10:00 05/16/24 09:27 500 MG Acetaminophen 650 mg Q6HP PRN PO 05/09/24 23:45 05/12/24 18:31 650 MG Morphine Sulfate 2 mg Q4HPRN PRN IV 05/09/24 23:45 05/15/24 11:05 2 MG Nitroglycerin 0.4 mg Q5MINP PRN SL 05/09/24 23:45 Morphine Sulfate 2 mg Q30M PRN IV 05/09/24 23:45 Piperacillin Sod/ Tazobactam Sod 100 ml @ 25 mls/hr Q8H IV 05/10/24 02:30 05/16/24 09:28 25 MLS/HR Hydralazine HCl 10 mg Q6HP PRN IV 05/12/24 17:15 Cancel Acetaminophen/ Hydrocodone Bitart 1 tab Q4HPRN PRN PO 05/13/24 10:45 05/15/24 22:10 1 TAB Sodium Chloride 10 ml QSHIFT@10,22 IV 05/15/24 22:00 05/16/24 09:29 10 ML Laboratory Results Laboratory Tests 05/15/24 05:08 Microbiology Microbiology Date/Time Source Procedure Growth Status 05/12/24 12:01 Other Gram Stain - Final Resulted 05/12/24 12:01 Other Anaerobic Culture - Preliminary Resulted 05/12/24 12:01 Aerobic Culture - Final Methicillin Resistant S.aureus Resulted Labs and/or images reviewed: Labs reviewed by me Assessment/Plan Assessment/Plan MRSA infection Intractable buttock pain Left gluteal abscess Plan Continue current management with IV antibiotic Zosyn Continue pain medications. The patient is subsequently has I and D done. We will continuing to monitor the wound. Continuing wound care. The wound culture showed MRSA that is sensitive to Zyvox and daptomycin. I will insert PICC line and we will send patient home with IV Zyvox 600 mg IV b.i.d. for 14 days. Also home health for wound care. We will discuss with patient case coordinator. This medical document was created using an electronic medical record system with [employer] computerized dictation system. Although this document has been carefully reviewed, there may still be some phonetic and typographical errors. These areas are purely typographical due to imperfections of the software programs, and do not reflect any compromise in the patient's medical care. Plan discussed with: Patient My Orders Orders - JOANNE SUNG MD Procedure Category Date Status Time Nursing Protocol Picc OSBALDO 05/15/24 In Process 18:16 Change Dressing Prn [facility] 05/15/24 In Process 18:16 PICC BD 05/15/24 Transmitted 18:16 Sodium Chloride Lock PHA 05/15/24 In Process (Saline Lock Ns) 22:00 Do Not Use Picc For [facility] 05/15/24 In Process Blood Cult 18:16 May Draw Blood From OSBALDO 05/15/24 In Process Picc 18:16 Ok To Use Picc OSBALDO 05/15/24 In Process 18:16 Change Picc Dressing [facility] 05/15/24 In Process Q7 Days 18:16 Date of Service: May 15, 2024 Billing Provider: JOANNE SUNG MD Common Visit Codes: [id number] INP/OBS CARE(HIGH) JOANNE SUNG MD May 16, 2024 15:22
[2024-05-17] VITALS (8 sets, daily range): BP systolic 97–118; BP diastolic 60–76; PULSE 62–86; RESP 18–20; TEMP 97.8–99.3; O2SAT 95–98
[2024-05-17] MEDS ORDERED: HYDR-4902 PO (12:52)
--- NOTE | 2024-05-17 23:34 | DVHPN2 ---
Subjective The patient seen and examined at bedside. The patient still have lots of pain in buttock area. Reviewed: Care Plan, H&P, Labs, Medications, Previous Orders, Radiology Changes from previous H/P or p: No Changes Eyes: No Pain, No Vision change, No Conjunctivae inflammation, No Eyelid inflammation, No Other, No Redness ENT: No Ear pain, No Ear discharge, No Nose pain, No Nose discharge, No Nose congestion, No Mouth pain, No Mouth swelling, No Throat pain, No Throat swelling, No Other Cardiovascular: No Chest Pain, No Palpitations, No Orthopnea, No Paroxysmal Noc. Dyspnea, No Edema, No Lt Headedness, No Other Respiratory: No Cough, No Dry, No Shortness of breath, No SOB with excertion, No Wheezing, No Hemoptysis, No Pleuritic Pain, No Sputum, No Other Gastrointestinal: No Nausea, No Vomiting, No Abdominal Pain, No Diarrhea, No Constipation, No Melena, No Hematochezia, No Other Genitourinary: No Dysuria, No Frequency, No Incontinence, No Hematuria, No Retention, No Other Musculoskeletal: No other, No neck pain, No shoulder pain, No arm pain, No back pain, No hand pain, No leg pain, No foot pain Skin: No Rash, No Lesions, No Jaundice, No Bruising; Other (Abscess to the left gluteal region) Objective Vitals Vital Signs Date Time Temp Pulse Resp B/P (MAP) Pulse Ox O2 Delivery O2 Flow Rate FiO2 05/17/24 21:00 97.8 79 20 112/67 (82) 96 97.8 05/17/24 20:00 Room Air* 0 21 Intake/Output Intake and Output 05/17/24 07:00 Intake Total 2538 ml Balance 2538 ml Intake Oral 1438 ml IV Total 1100 ml # Voids 15 # Bowel Movements 1 General Appearance: Alert, Oriented X3, Cooperative, No acute distress HEENT: Atraumatic, PERRLA, EOMI, Mucous membr. moist/pink Neck: Supple Cardiovascular: Regular rate, Normal S1, Normal S2, No murmurs, Gallops, Rubs Abdomen: Normal bowel sounds, Soft, No tenderness Neuro: Cranial nerves 3-12 NL Psych/Mental Status: Mental status NL Medications Current Medications Medications Dose Ordered Sig/Tameka Route Start Time Stop Time Status Last Admin Dose Admin Sodium Chloride 1,000 ml @ 60 mls/hr [id number] IV 05/09/24 23:45 05/17/24 18:39 60 MLS/HR Ondansetron HCl 4 mg Q4HP PRN IV 05/09/24 23:45 05/12/24 14:48 4 MG Docusate Sodium 100 mg BIDPRN PRN PO 05/09/24 23:45 Zinc Sulfate 220 mg DAILY PO 05/10/24 10:00 05/17/24 09:59 220 MG Ascorbic Acid 500 mg BID PO 05/10/24 10:00 05/17/24 21:34 500 MG Acetaminophen 650 mg Q6HP PRN PO 05/09/24 23:45 05/12/24 18:31 650 MG Morphine Sulfate 2 mg Q4HPRN PRN IV 05/09/24 23:45 05/17/24 18:39 2 MG Nitroglycerin 0.4 mg Q5MINP PRN SL 05/09/24 23:45 Morphine Sulfate 2 mg Q30M PRN IV 05/09/24 23:45 Piperacillin Sod/ Tazobactam Sod 100 ml @ 25 mls/hr Q8H IV 05/10/24 02:30 05/17/24 18:38 25 MLS/HR Hydralazine HCl 10 mg Q6HP PRN IV 05/12/24 17:15 Cancel Acetaminophen/ Hydrocodone Bitart 1 tab Q4HPRN PRN PO 05/13/24 10:45 05/15/24 22:10 1 TAB Sodium Chloride 10 ml QSHIFT@10,22 IV 05/15/24 22:00 05/17/24 21:37 10 ML Laboratory Results Laboratory Tests 05/15/24 05:08 Microbiology Microbiology Date/Time Source Procedure Growth Status 05/12/24 12:01 Other Gram Stain - Final Complete 05/12/24 12:01 Other Anaerobic Culture - Final Complete 05/12/24 12:01 Aerobic Culture - Final Methicillin Resistant S.aureus Complete Labs and/or images reviewed: Labs reviewed by me Assessment/Plan Assessment/Plan MRSA infection Intractable buttock pain Left gluteal abscess Plan Continue current management with IV antibiotic Zosyn Continue pain medications. The patient is subsequently has I and D done. We will continuing to monitor the wound. Continuing wound care. The wound culture showed MRSA that is sensitive to Zyvox and daptomycin. PICC line placement was done. I will give the patient one dose of IV Zyvox 600 mg x 1 to see the patient tolerated the medication and not have allergic reaction. Still waiting for setting up home health for IV antibiotic and wound care at home This medical document was created using an electronic medical record system with [employer] direct computerized dictation system. Although this document has been carefully reviewed, there may still be some phonetic and typographical errors. These areas are purely typographical due to imperfections of the software programs, and do not reflect any compromise in the patient's medical care. Plan discussed with: Patient My Orders Orders - JOANEN SUNG MD Procedure Category Date Status Time Discharge DISCHARGE 05/17/24 Transmitted 12:53 Date of Service: May 17, 2024 Billing Provider: JOANNE SUNG MD Common Visit Codes: [id number] INP/OBS CARE(HIGH) JOANNE SUNG MD May 17, 2024 23:34
[2024-05-18 01:00] VITALS: BP 105/64; PULSE 81; RESP 20; TEMP 97.9; O2SAT 96
[2024-05-18 04:58] VITALS: BP 95/56; PULSE 66; RESP 20; TEMP 98.6; O2SAT 98
[2024-05-18 08:53] VITALS: BP 102/57; PULSE 67; RESP 16; TEMP 98.6; O2SAT 95
--- NOTE | 2024-05-18 12:35 | DVHDS2 ---
Discharge Summary Date of Admission May 09, 2024 at 23:35 Date of Discharge: May 17, 2024 Admitting Diagnosis Intractable buttock pain Left gluteal abscess Labs/Diagnostic Data: Laboratory Results Test 05/15/24 05:08 05/14/24 09:20 05/12/24 09:58 05/12/24 00:12 White Blood Count 4.8 10^3/uL (4.4-10.8) Red Blood Count 3.90 10^6/uL (4.0-5.20) Hemoglobin 10.1 g/dL (12.2-16.2) Hematocrit 30.9 % (36.0-46.0) Mean Corpuscular Volume 79.2 fL (80.0-100.0) Mean Corpuscular Hemoglobin 25.8 pg (28.0-32.0) Mean Corpuscular Hemoglobin Concent 32.6 g/dL (32.0-36.0) Red Cell Distribution Width 13.8 % (11.8-14.3) Platelet Count 304 10^3/uL (140-450) Mean Platelet Volume 8.4 fL (6.9-10.8) Neutrophils (%) (Auto) 66.7 % (37.0-80.0) Lymphocytes (%) (Auto) 20.1 % (10.0-50.0) Monocytes (%) (Auto) 10.0 % (0.0-12.0) Eosinophils (%) (Auto) 2.2 % (0.0-7.0) Basophils (%) (Auto) 1.0 % (0.0-2.0) Neutrophils # (Auto) 3.2 10 ^3/uL (1.6-8.6) Lymphocytes # (Auto) 1.0 10 ^3/uL (0.4-5.4) Monocytes # (Auto) 0.5 10 ^3/uL (0-1.3) Eosinophils # (Auto) 0.1 10 ^3/uL (0-0.8) Basophils # (Auto) 0 10 ^3/uL (0-0.2) Nucleated Red Blood Cells 0.1 % Sodium Level 136 mmol/L (136-145) Potassium Level 4.3 mmol/L (3.5-5.1) Chloride Level 103 mmol/L (98-107) Carbon Dioxide Level 27 mmol/L (20-31) Anion Gap 6 (5-15) Blood Urea Nitrogen 8 mg/dL (9-23) Creatinine 0.64 mg/dL (0.550-1.02) Glomerular Filtration Rate Calc 123 mL/min (>90) BUN/Creatinine Ratio 12.5 (10.0-20.0) Serum Glucose 104 mg/dL (74-106) Calcium Level 9.0 mg/dL (8.7-10.4) Differential Total Cells Counted 100.0 (100) Neutrophils % (Manual) 68 (37.0-80.0) Band Neutrophils % (Manual) 5 Lymphocytes % (Manual) 23 (10.0-50.0) Monocytes % (Manual) 2 (0-12) Eosinophils % (Manual) 2 (0-7) Basophils % (Manual) 0 (0.0-2.0) Metamyelocytes % (manual) 0 Myelocytes % (Manual) 0 Promyelocytes % (Manual) 0 Blast Cells % (Manual) 0 Reactive Lymphocytes 0 Platelet Estimate Adequate Prothrombin Time 10.8 sec (9.3-11.8) Prothrombin Time INR 1.02 (0.9-1.15) Activated Partial Thromboplast Time 24.7 SEC (24.5-34.5) Beta HCG, Quantitative 0.5 mIU/mL (1.5-4.2) Troponin I High Sensitivity < 3 ng/L (</=34) Test 05/11/24 06:29 05/10/24 06:35 05/09/24 19:05 Anisocytosis (manual) Slight Total Bilirubin 0.6 mg/dL (0.2-1.0) Aspartate Amino Transferase (AST) 36 U/L (13-40) Alanine Aminotransferase (ALT) 55 U/L (7-40) Alkaline Phosphatase 100 U/L (46-116) Total Protein 7.0 g/dL (5.7-8.2) Albumin 4.0 g/dL (3.2-4.8) Lactic Acid Level 1.3 mmol/L (0.4-2.0) Other Laboratory Tests 05/15/24 05:08 Brief Hx & Hospital Course: This is a 29 years old female with no known past medical history come to emergency department because left gluteal abscess. The patient said this just start as a boil and then it became an abscess. Now it si worsening so she came to emergency department for further evaluation. laboratory data shows WBC 9.8, platelets 266, sodium 135, potassium 3.4, BUN nine, creatinine 0.85, GFR 94, glucose 108, AST 49, ALT 65. Pelvis CT revealing 9.3 x 4.9 cm phlegmon left gluteal soft tissues, no drainable abscess visualized. Patient was started on IV antibiotic regimen Zosyn, Subsequently, the patient has an I and D done by Dr. Gonzalez. Abcess culture show MRSA bacteria sensitive with zyvox, vancomycin and daptomycin. The patient has wound care in the hospital. The patient wound was pack and change by typing bookkeeper. I will d/c patient home with homehealth for wound care and IV abx with zyvox 600mg bid x 2 weeks. Activity as tolerate, diet per home diet. Follow up with PCP 1-2 weeks. Follow up with surgeon, Dr. Gonzalez per schedule. Physical exam: HEENT: Normocephalic atraumatic pupils equal react to light and accommodation. Extraocular muscles intact, conjunctiva pink, oropharynx moist, no thrush, no exudate. Lymphatic: No lymphadenopathy Cardiovascular exam: S1, S2 was heard. No murmurs, rubs, gallops Lung: Clear on auscultation bilaterally, no wheeze, rale, rhonchi. GI: Abdominal soft, nondistended, nontenderness, positive bowel sounds. Extremity: No crepitus, cyanosis, edema. Pedal pulses present bilateral. Full range of motion. Skin: Normal turgor, no rash. Psych: Alert, oriented x3. Neurology: No focal deficits, cranial nerve II to XII grossly intact. This medical document was created using an electronic medical record system with [employer] direct computerized dictation system. Although this document has been carefully reviewed, there may still be some phonetic and typographical errors. These areas are purely typographical due to imperfections of the software programs, and do not reflect any compromise in the patient's medical care. Condition at Discharge: Stable Final Diagnosis/Problems List MRSA infection Intractable buttock pain Left gluteal abscess Discharge Disposition: Home with Health Services Discharge Instruct/Medications Diet: Regular Activity: No Restrictions, As Tolerated Follow Up/Referral: pcp 1-[address] Mac , surgeon per schedule. Medications: see med list. Discharge Statement: "Patient was advised to return to the ER or call 911 if any headaches, dizziness, shortness of breath, chest pain, abdominal pain, bleeding, fevers, or worsening of medical condition. Patient was counseled about treatment plan, medications, possible side effects, patientverbalized understanding. All questions were answered to the best of my ability. This discharge took greater then 30 minutes in planning, reviewing documentation, counseling the patient, and discussing with other team members." ASSESSMENT ASSESSMENT Assessment Butock abscess Date of Service: May 18, 2024 Billing Provider: JOANNE SUNG MD Common Visit Codes: [id number] DISCH DAY >30min JOANNE SUNG MD May 18, 2024 12:35
[2024-05-18 13:00] VITALS: BP 109/61; PULSE 69; RESP 17; TEMP 98.4; O2SAT 97
[2024-05-18 16:24] VITALS: BP 109/61; PULSE 69; RESP 17; TEMP 98.4; O2SAT 97
[2024-05-18 17:00] VITALS: BP 92/63; PULSE 81; RESP 18; TEMP 99.2; O2SAT 98
== END 2024-05-18 17:35 | disposition home health service (06) | DRG 383 ==
LOC: EDUNIT# 18:14 → EDBD 18:14 → ER 18:14 → OVERFLOW 23:35 → EAST 05-10 18:22
PROVIDERS: ADMIT Nurse Practitioner Family; ATTEND Internal Medicine
PROC: 0Y910ZX Drainage of Left Buttock, Open Approach, Diagnostic (ICD-10-PCS; principal; 2024-05-12 11:42)
PROC: 02HV33Z Insertion of Infusion Device into Superior Vena Cava, Percutaneous Approach (ICD-10-PCS; 2024-05-15)
PROC: B548ZZA Ultrasonography of Superior Vena Cava, Guidance (ICD-10-PCS; 2024-05-15)
DX: L02.31 Cutaneous abscess of buttock (principal); R71.0 Precipitous drop in hematocrit; B95.62 Methicillin resistant Staphylococcus aureus infection as the cause of diseases classified elsewhere; E66.01 Morbid (severe) obesity due to excess calories; Z68.36 Body mass index [BMI] 36.0-36.9, adult; Z79.899 Other long term (current) drug therapy
CPT/HCPCS: 36415; 36569; 72193; 76937; 80048; 80053; 83605; 84484; 84702; 85007; 85025; 85027; 85610; 85730; 87070; 87075; 87077; 87186; 87205; 93005; 93306; 94640; G0378; J0330; J1885; J2250; J2405; J2543; J2704; J3490; J7060